=== PATIENT | female | born 1960 | race Caucasian/White ===

== ENCOUNTER → 2017-12-16 | Outpatient (CLI) | payer MEDICARE, OTHER ==
[2017-12-16 17:52] LABS: Blood Urea Nitrogen 13 mg/dL (7-17)
--- NOTE | 2017-12-16 23:37 | CT ---
EXAMINATION TYPE: CT abdomen pelvis w con DATE OF EXAM: 12/16/2017 COMPARISON: NONE HISTORY: 57-year-old female incisional hernia, Epigastric pain and bloating TECHNIQUE: Contiguous axial scanning of the abdomen and pelvis following administration of 100 ml Iso dee dee 300 IV contrast. Delayed images through the kidneys and coronal/sagittal reconstructions perform ed. CT DLP: 1813.1 mGycm Automated exposure control for dose reduction was used. FINDINGS: The technologist reports that the patient was unable to complete the oral prep. Heart normal size without pericardial effusion. Strandy atelectasis in the lower lungs. Subcentimeter hypodensity right hepatic dome too small for accurate CT characterization, likely cysts . Liver enlarged measuring 22.6 cm on coronal series. No biliary ductal dilatation. The venous system i s patent. Moderate-sized omental fat-containing umbilical hernia measuring 5.5 x 5.7 cm centimeters a 1.5 abdom inal wall defect. This seems to be prior mesh repair. In the left paramedian supraumbilical level, th ere are small residual fatty hernia measuring 2.1 cm wide with the hernia neck measuring 1.2 cm wide. Gallbladder, adrenal glands, kidneys, and pancreas appear within normal limits. Tiny hilar splenule a nd borderline splenomegaly at 13.8 cm. No dilated small bowel, free fluid, or free air. Some mildly prominent retroperitoneal lymph node situated in the left paraaortic region measuring up to 9 and are probably reactive/post inflammatory. No mesenteric lymphadenopathy seen. Normal appendix. Oral contrast progressed to the hepatic flexure. Scattered mild stool. No pericoloni c inflammatory change. Fibroid uterus with at least 2 left-sided fundal fibroid measuring up to 4.2 cm. These appear particu larly intramural and partially subserosal. Bladder is collapsed but shows mild circumferential wall t hickening. The left ovary is visualized with a a 3.0 cm dominant follicle or functional cyst. No abnormal fluid collection in the pelvis or pelvic lymphadenopathy. Bones: Endplate spondylosis lower thoracic spine and degenerative disc disease mid to lower lumbar sp ine. IMPRESSION: 1. MODERATE SIZED OMENTAL FAT-CONTAINING UMBILICAL HERNIA MEASURING 5.7 CM WITH A 1.5 CM ABDOMINAL WA LL DEFECT. 2. AN ADDITIONAL SMALL FATTY HERNIA LEFT PARAMEDIAN SUPRAUMBILICAL REGION MEASURING 2.1 CM AND A 1.2 CM WIDE HERNIA NECK. 2. HEPATOMEGALY (22.6 CM) AND FIBROID UTERUS.
== END | disposition home or self-care (01) ==
LOC: RADCTMAIN 17:07
PROVIDERS: ATTEND Surgery
DX: K42.9 Umbilical hernia without obstruction or gangrene (principal); K43.9 Ventral hernia without obstruction or gangrene; R16.0 Hepatomegaly, not elsewhere classified; D25.9 Leiomyoma of uterus, unspecified
CPT/HCPCS: 82565; 84520; 74177; 36415; Q9967

== ENCOUNTER → 2018-01-26 | Outpatient (CLI) | payer MEDICARE, OTHER | END | disposition home or self-care (01) | LOC: LABPAT 16:13 | PROVIDERS: ATTEND Surgery | DX: Z01.818 Encounter for other preprocedural examination (principal); Z01.812 Encounter for preprocedural laboratory examination | CPT/HCPCS: 36415; 84132; 93005 ==

== ENCOUNTER 2018-02-02 08:00 | Inpatient (IN) | payer MEDICARE, OTHER ==
[2018-01-23 16:29] VITALS: BMI 34.2
[~2018-02-02 08:00] MED LIST: DEXAMETHASONE SOD PHOSPHATE 10 MG/ML 1 ML VIAL IV ONE; HEPARIN SODIUM,PORCINE 5,000 UNIT/ML 1 ML VIAL SQ ONE; LIDOCAINE 1% 20 ML VIAL (10MG/ML) FOR IV START INTRADERMA PRN; MIDAZOLAM 2 MG/2 ML VIAL IV PRN; ONDANSETRON 4 MG/2 ML VIAL IVP ONE; ceFAZolin IN SWFI 2 GM/20 ML SYRINGE IVP ONE; fentaNYL (PF) 50 MCG/ML 2 ML AMP IV PRN
[2018-02-02] MEDS: LACTATED RINGERS 1,000 ML IV SCH ×3 (09:30→17:14)
--- NOTE | 2018-02-02 09:42 | P.GSHP ---
History of Present Illness H&P Date: 02/02/18 Chief Complaint: Incisional hernia, panniculus This a 57-year-old female who presents today for panniculectomy and repair of incisional hernia. Patient's had multiple incisional hernia repairs. She's a well-formed panniculus. She's had problems with chronic skin irritation. Patient aware the risk of wound infection, seroma, hematoma Past Medical History Past Medical History: Asthma, Diabetes Mellitus, Hearing Disorder / Deafness, Skin Disorder Additional Past Medical History / Comment(s): SLEEP WALKS, HX OF MULTIPLE HERNIA REPAIR SURGERIES., RASH IN FOLDS OF ABDOMINAL APRON., HEARING IMPAIRED- STATES SHE WILL READ LIPS., WATCHES DIET- NO PROCESSED SUGAR. History of Any Multi-Drug Resistant Organisms: None Reported Past Surgical History: Section, Hernia Repair Additional Past Surgical History / Comment(s): HERNIA REPAIR X13. Past Anesthesia/Blood Transfusion Reactions: Previous Problems w/ Anesthesia Additional Past Anesthesia/Blood Transfusion Reaction / Comment(s): PAIN WITH EPIDURAL WITH C-SECTIONS. Past Psychological History: Anxiety Smoking Status: Never smoker Past Alcohol Use History: None Reported Past Drug Use History: None Reported - Past Family History Mother Family Medical History: Cancer Father Family Medical History: Cancer Brother(s) Family Medical History: Pulmonary Embolus Medications and Allergies Home Medications Medication Instructions Recorded Confirmed Type Albuterol Sulfate [Proair Hfa] 1 - 2 puff INHALATION Q6HR PRN 01/23/18 02/02/18 History Biotin 5 mg PO DAILY 01/23/18 02/02/18 History Cetirizine HCl 10 mg PO DAILY 01/23/18 02/02/18 History Furosemide [Lasix] 80 mg PO DAILY 01/23/18 02/02/18 History Nystatin Powder 1 applicate TOPICAL DIRECTED PRN 01/23/18 02/02/18 History metFORMIN HCL 1,000 mg PO BID-W/MEALS 01/23/18 02/02/18 History Allergies Allergy/AdvReac Type Severity Reaction Status Date / Time latex Allergy Severe Anaphylaxis Verified 02/02/18 09:28 morphine Allergy Severe Anaphylaxis Verified 02/02/18 09:28 peanut Allergy Severe Anaphylaxis Verified 02/02/18 09:28 perfume Allergy Severe DIARRHEA, Verified 02/02/18 09:28 VOMITING, EYE SWELLING, DIFFICULTY BREATHING. 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 We'll perform panniculus. We will also perform repair of recurrent incisional hernia. The patient is extensive detail of the risk of seroma, hematoma wound infection and possible need for reconstructive plastic surgery. Patient's aware that this is not a cosmetic procedure however procedure remove redundant skin and fat. She understands the risk of possible surgery for cosmesis after panniculectomy has been performed.
[2018-02-02] MEDS ORDERED: ONDANSETRON 4 MG/2 ML VIAL IVP ONE (09:48)
[2018-02-02] MEDS ORDERED: DEXAMETHASONE SOD PHOS (MDV) 100 MG/10 ML VIAL IVP ONE (09:48)
[2018-02-02 09:49] LABS: Glucose,Whole Blood 129 mg/dL (75-99)
[2018-02-02] MEDS ORDERED: fentaNYL (PF) 50 MCG/ML 2 ML AMP IVP ONE (09:52)
[2018-02-02 10:04] LABS: Basophils # (A) 0.1 k/uL (0-0.2); Basophils % (A) 0 %; Eosinophils # (A) 0.2 k/uL (0-0.7); Eosinophils % (A) 2 %; HCT 39.7 % (34.0-46.0); HGB 13.4 gm/dL (11.4-16.0); Lymphocytes # (A) 2.8 k/uL (1.0-4.8); Lymphocytes % (A) 27 %; MCH 27.8 pg (25.0-35.0); MCHC 33.8 g/dL (31.0-37.0); MCV 82.5 fL (80.0-100.0); Mean Platelet Volume 7.2; Monocytes # (A) 0.5 k/uL (0-1.0); Monocytes % (A) 5 %; Neutrophils # (A) 6.9 k/uL (1.3-7.7); Neutrophils % (A) 65 %; Platelet Count 410 k/uL (150-450); RBC 4.82 m/uL (3.80-5.40); RDW 13.9 % (11.5-15.5); WBC 10.6 k/uL (3.8-10.6)
[2018-02-02] MEDS ORDERED: LIDOCAINE 1% INJ 10MG/ML (20 ML MDV) ONE (10:14)
[2018-02-02] MEDS ORDERED: VECURONIUM 10 MG VIAL IV ONE (10:14)
[2018-02-02] MEDS ORDERED: fentaNYL (PF) 50 MCG/ML 2 ML AMP ONE (10:14)
[2018-02-02] MEDS ORDERED: PROPOFOL 10 MG/ML 20 ML VIAL IV ONE (10:14)
[2018-02-02] MEDS ORDERED: NEOSTIGMINE 1 MG/ML 10 ML VIAL ONE (10:14)
[2018-02-02] MEDS ORDERED: GLYCOPYRROLATE 0.2 MG/ML 2 ML VIAL ONE (10:14)
[2018-02-02] MEDS ORDERED: SUCCINYLCHOLINE CHLORIDE 100 MG/5 ML SYR IV ONE (10:14)
[2018-02-02] MEDS ORDERED: MIDAZOLAM 2 MG/2 ML VIAL ONE (10:14)
[2018-02-02] MEDS ORDERED: BUPIVACAIN-EPI 0.25%-1:200,000 30 ML VIAL SQ ONE (10:48)
[2018-02-02] MEDS ORDERED: LACTATED RINGERS 1,000 ML IV ONE ×2 (11:01→13:25)
[2018-02-02] MEDS ORDERED: HYDROmorphone 1 MG/ML 1 ML SYRINGE IVP ONE (13:46)
[2018-02-02] MEDS ORDERED: NALOXONE 0.4 MG/ML 1 ML VIAL IV PRN (14:02)
[2018-02-02] MEDS ORDERED: ONDANSETRON 4 MG/2 ML VIAL IVP PRN (14:02)
--- NOTE | 2018-02-02 14:22 | P.ONQ ---
Anesthesiology Proc Note - PNB - Peripheral Nerve Block Performed Bilateral Rectus Abdominis Single Time Out Performed: Yes Procedure Start Time: 09:50 Indication: Acute Post-Operative Pain, Analgesia Specifically requested for management of pain by DrMadeline: Robby Frederick Sedation Type: Sedate with meaningful contact maintained Preparation: Sterile Prep Position: Supine Catheter: None Needle Types: Other (see comment) (Pajunk) Needle Size: 100mm (4") Needle Gauge: 18 Technique: Ultrasound Injectate: Other (see comment) (lido .05% 15cc + Rop .025% 15cc each side) Adjunct: Epinephrine (see comment for dilution ratio) (1:200.000) Blood Aspirated: No Pain Paresthesia on Injection Noted: No Resistance on Injection: Normal Events: Uneventful and Well Tolerated
[2018-02-02] MEDS: HYDROmorphone 1 MG/ML 1 ML SYRINGE IVP PRN ×2 (14:38→18:03)
[2018-02-02] MEDS ORDERED: ALBUTEROL NEBULIZED 2.5 MG/3 ML INHALATION ONE (14:47)
[2018-02-02] MEDS ORDERED: MIDAZOLAM 2 MG/2 ML VIAL IVP ONE (14:52)
--- NOTE | 2018-02-02 16:02 | P.OP ---
Date of Procedure: 02/02/18 Preoperative Diagnosis: Panniculus Recurrent incisional hernia Postoperative Diagnosis: Panniculus Recurrent incisional hernia incarcerated Left inguinal hernia Procedure(s) Performed: Panniculectomy Repair of recurrent incisional hernia Partial omentectomy Repair of left inguinal hernia Anesthesia: JAIR Surgeon: Robby Frederick Estimated Blood Loss (ml): 50 Pathology: other (Omentum) Condition: stable Disposition: PACU Description of Procedure: PROCEDURE: The patient was placed on the operating table in supine position and received general anesthetic. The abdomen was prepped and draped in the usual sterile fashion. The lower skin incision was then made after the skin was marked with a marker. The incision ran from the pubic area to the level of the anterosuperior iliac spine. Using blunt and sharp dissection and electrocautery the subcutaneous tissues were then dissected down to the level of the fascia external oblique. Next, a timbo shaped incision was made around the umbilicus and the umbilicus was then dissected down to the level of the fascia external oblique. The patient was found to have no significant stock of her umbilicus. The patient's umbilical stalk was nonexistent. She had a previous incisional hernia repair which made the umbilicus free floating. . After the umbilicus was dissected a 0 Vicryl suture was used to orientate the umbilicus. The suture was placed at the 12 o'clock position of the umbilicus. Following this the dissection was then made from the inferior pannicular incision cephalad. The xiphoid and costal margins were the limits of the dissection. Several small perforating vessels were ligated and cautery was used to maintain hemostasis. Once the dissection was performed the panniculus was then divided in the midline from the level of the umbilicus towards the pubic area. Downward and lateral traction was then placed on the abdominal wall and the skin was suitably marked for transection of the umbilicus. The skin was then incised and the Bovie was used for dissection of the pannicular flap. Patient had an incarcerated recurrent incisional hernia. Using the cautery the hernia sac was divided and then the omentum which was incarcerated within the hernia sac was transected with the Harmonic scissors. The specimens of pathology. The fascial defect was closed with 3-0 Ethibond sutures. And then the abdominal wall fascia was brought together using 0 Vicryl and 0 PDS to complete the plication of the abdominal wall. Next, to 10-Yi JIM drains were placed in the wound and brought out through separate stab incisions at the level of the pubic area. The drains were secured to the skin using 3-0 nylon. After the JIM drains were secured, Ana Maria' s fascia was closed with interrupted 0 Vicryl sutures and then the skin was closed with running 3-0 Monocryl sutures. Prior to closure of the abdominal wall care was taken to ensure that both the abdominal wall and the abdominal wall flap were hemostatic. At this point the drains were placed to suction. The abdomen was cleaned and then sterile tape was placed over top of the incisions. Abdominal binder was then placed. The patient tolerated the procedure well. The patient was sent to recovery room in stable condition.
[2018-02-02] MEDS: HYDROcodone/APAP 5-325MG 1 EACH TAB PO PRN (16:08)
[2018-02-02] MEDS ORDERED: ALBUTEROL NEBULIZED 2.5 MG/3 ML INHALATION PRN (16:24)
[2018-02-02] MEDS: ALBUTEROL NEBULIZED 2.5 MG/3 ML INHALATION PRN (16:29)
[2018-02-02] MEDS: LACTATED RINGERS 1,000 ML IV ONE ×2 (16:46→18:05)
[2018-02-02] MEDS ORDERED: ALPRAZolam 0.5 MG TAB PO PRN (19:23)
[2018-02-02] MEDS: metFORMIN 500 MG TAB PO SCH (19:35)
[2018-02-02] MEDS ORDERED: HYDROmorphone 1 MG/ML 1 ML SYRINGE IVP STA (19:43)
[2018-02-02] MEDS ORDERED: HYDROmorphone 1 MG/ML 1 ML SYRINGE IVP PRN (19:47)
--- NOTE | 2018-02-02 20:51 | CONS ---
CONSULTATION CHIEF COMPLAINT: This is a white female, status post incisional hernia panniculus repair for medical management. She had some difficulty breathing after surgery and some chest tightness. EKG was normal. She was placed on updraft treatment of albuterol for which made her feel better 2.5 mg updraft treatment, which will be ordered every 4-6 hours p.r.n. She is breathing better now at this time. She states the epidural in her abdomen is not working, is not controlling any of her pain at all. PAST MEDICAL HISTORY: Asthma, diabetes mellitus, hearing disorder, deafness, skin disorder, history of multiple hernias, rashes in the folds of her abdominal apron and sleep walks, history of multiple hernia repair surgeries, borderline diabetes, anxiety. Does not smoke and does not drink alcohol. FAMILY HISTORY: Mother with cancer. Father with cancer. HOME MEDICINES: Albuterol, biotin, Cetirizine 10, Lasix 80, nystatin topical, albuterol 2 puffs q.6 hours p.r.n. ALLERGIES: Latex, morphine, peanuts, perfume, fragrances. PHYSICAL EXAMINATION: VITAL SIGNS: Pulse 86, respiratory 16, blood pressure 153/79, O2 97%. HEENT: Well-developed, well-nourished, no acute distress. CARDIOVASCULAR: S1, S2. LUNGS: Normal expansion. ABDOMEN: Soft, nontender. INTEGUMENT: Skin rash panniculus. ASSESSMENT: 1. Status post panniculus surgery. Shortness of breath postop with some throat irritation secondary to generalized anesthesia reaction and endotracheal tube. 2. History of hypertension with edema. 3. Borderline diabetes mellitus. Continue current treatments. Home medicines are ordered for all of the above. MMODL / IJN: [id number] /
[2018-02-02 21:04] LABS: Glucose,Whole Blood 172 mg/dL (75-99)
[2018-02-02] MEDS: DOCUSATE 100 MG CAP PO SCH (22:41)
[2018-02-02] MEDS: INSULIN ASPART 100 UNIT/ML 1 ML 10 ML VIAL SQ SCH (22:43)
[2018-02-03] MEDS: ALBUTEROL NEBULIZED 2.5 MG/3 ML INHALATION PRN ×2 (00:42→12:46)
[2018-02-03] MEDS: HYDROcodone/APAP 5-325MG 1 EACH TAB PO PRN ×2 (01:35→09:16)
[2018-02-03] MEDS: HYDROmorphone 1 MG/ML 1 ML SYRINGE IVP PRN ×6 (02:54→21:46)
[2018-02-03 07:24] LABS: Glucose,Whole Blood 151 mg/dL (75-99)
[2018-02-03] MEDS: INSULIN ASPART 100 UNIT/ML 1 ML 10 ML VIAL SQ SCH ×4 (08:39→21:30)
[2018-02-03] MEDS: ENOXAPARIN 40 MG/0.4 ML SYRINGE SQ SCH (08:40)
[2018-02-03] MEDS: metFORMIN 500 MG TAB PO SCH ×2 (08:40→18:36)
[2018-02-03] MEDS: FUROSEMIDE 80 MG TAB PO SCH ×3 (08:41→18:42)
[2018-02-03] MEDS: DOCUSATE 100 MG CAP PO SCH ×2 (08:41→21:30)
[2018-02-03] MEDS: LORATADINE 10 MG TAB PO SCH (08:41)
[2018-02-03] MEDS ORDERED: NON-FORMULARY DRUG (Biotin [Biotin] 5 MG) PO SCH (09:00)
[2018-02-03 11:56] LABS: Glucose,Whole Blood 140 mg/dL (75-99)
--- NOTE | 2018-02-03 13:26 | P.PN ---
Subjective Progress Note Date: 02/03/18 57-year-old female seen postop visit. Sitting up in bed drowsy just received pain medication patient states pain medication doesn't completely relieve the pain. Has a prevena system in place surgical dressing sites dry with [address] reports no nausea vomiting states has no real appetite but is tolerating the clear liquid diet Postop Panniculectomy, repair of recurrent incisional hernia, partial omentectomy repair of left inguinal hernia Objective - Vital Signs Vital signs: Vital Signs Temp 97.9 F 02/03/18 07:50 Pulse 84 02/03/18 12:55 Resp 16 02/03/18 09:29 BP 131/85 02/03/18 07:50 Pulse Ox 96 02/03/18 09:29 Intake & Output 02/02/18 02/03/18 02/03/18 18:59 06:59 18:59 Intake Total 2750 260 Output Total 510 190 150 Balance 2240 -190 110 Weight 106.594 kg Intake: IV 2750 Oral 260 Output: Drainage 110 190 150 Abdomen 50 100 60 Left Abdomen 60 90 90 Urine 200 Estimated Blood Loss 200 Other: Voiding Method Toilet # Voids 1 - Exam Physical exam 57-year-old female sitting up in bed just received pain medication oriented 3 Lungs decreased at the bases otherwise adequate air movement Heart S1-S2 audible regular Abdomen surgical tenderness appropriate prevena [address] with 2 JIM drains moderate amount of bloody drainage noted in the bulb not distended. Hypoactive bowel tones no nausea no vomiting no stool states not passing gas Extremities no edema - Labs CBC & Chem 7: 02/02/18 09:40 Labs: Abnormal Lab Results - Last 24 Hours (Table) 02/02/18 02/03/18 02/03/18 Range/Units 20:52 07:18 11:55 POC Glucose (mg/dL) 172 H 151 H 140 H (75-99) mg/dL Assessment and Plan Assessment: Impression Hearing disorder deafness Multiple hernia repair surgeries Panniculectomy, repair of recurrent incisional hernia, repair of left inguinal hernia, partial omentectomy Plan Pain control Clear liquid diet as tolerated DVT and GI prophylaxis Increase activity as tolerated The above impression and plan of care have been discussed and directed by signing physician. Neris Bustamante nurse practitioner acting as scribe for signing physician.
[2018-02-03] MEDS: oxyCODONE-APAP 10-325MG 1 EACH TAB PO PRN ×2 (14:33→18:42)
[2018-02-03] MEDS: LACTATED RINGERS 1,000 ML IV SCH (14:49)
[2018-02-03 16:13] LABS: Hemoglobin A1C 6.3 % (4.0-6.0)
[2018-02-03 17:55] LABS: Glucose,Whole Blood 153 mg/dL (75-99)
[2018-02-03 19:56] LABS: Glucose,Whole Blood 169 mg/dL (75-99)
[2018-02-04] MEDS: HYDROmorphone 1 MG/ML 1 ML SYRINGE IVP PRN ×2 (01:07→04:01)
[2018-02-04] MEDS: oxyCODONE-APAP 10-325MG 1 EACH TAB PO PRN ×5 (01:08→22:11)
--- NOTE | 2018-02-04 05:42 | PN ---
PROGRESS NOTE SUBJECTIVE: A 57-year-old white female status post panniculectomy, wound incision looks intact. Goes all the way straight across her lower pelvic area. CARDIOVASCULAR: S1, S2. LUNGS: Clear. She is breathing better. Saturating good on oxygen level. Updraft treatments helped her. She will be discharged home in the next 24 to 48 hours. For pain medicine, please see further orders. MMODL / IJN: [id number] /
[2018-02-04 07:12] LABS: Glucose,Whole Blood 153 mg/dL (75-99)
[2018-02-04] MEDS: ALBUTEROL NEBULIZED 2.5 MG/3 ML INHALATION PRN (08:12)
[2018-02-04] MEDS: INSULIN ASPART 100 UNIT/ML 1 ML 10 ML VIAL SQ SCH ×4 (08:43→21:08)
[2018-02-04] MEDS: ENOXAPARIN 40 MG/0.4 ML SYRINGE SQ SCH (08:44)
[2018-02-04] MEDS: DOCUSATE 100 MG CAP PO SCH ×2 (08:44→22:12)
[2018-02-04] MEDS: LORATADINE 10 MG TAB PO SCH (08:45)
[2018-02-04] MEDS: metFORMIN 500 MG TAB PO SCH ×2 (08:45→19:06)
[2018-02-04] MEDS: FUROSEMIDE 80 MG TAB PO SCH (08:45)
[2018-02-04 11:46] LABS: Glucose,Whole Blood 142 mg/dL (75-99)
[2018-02-04] MEDS ORDERED: PANTOPRAZOLE 40 MG/10 ML VIAL IVP SCH (13:15)
[2018-02-04] MEDS: LACTATED RINGERS 1,000 ML IV SCH (13:51)
--- NOTE | 2018-02-04 16:08 | P.DS ---
Providers Date of admission: 02/02/18 08:55 Expected date of discharge: 02/04/18 Attending physician: Robby Frederick Consults: 02/02/18 14:02 Consult Physician Routine Consulting Provider: Eliazar Ramirez Reason/Comments: Medical management Do you want consulting provider notified?: Yes [facility] Course: 57-year-old female who presents undergoing elective panniculectomy and repair of incisional hernia. Patient's had multiple incisional hernia repairs. She's a well-formed panniculus. She's had problems with chronic skin irritation. Patient aware the risk of wound infection, seroma, hematoma Postop Panniculectomy, repair of recurrent incisional hernia, partial omentectomy repair of left inguinal hernia underwent the procedure on the 02 of February . On the day of discharge patient reportedly stated the pain medication is effective for pain control [address] with a moderate amount of bloody drainage noted in the bulbs a prevena wound system in place surgical dressing dry. Patient was tolerating the diet and was felt to be appropriate to be discharged .Impression Hearing disorder deafness Multiple hernia repair surgeries Panniculectomy, repair of recurrent incisional hernia, repair of left inguinal hernia, partial omentectomy The above impression and plan of care have been discussed and directed by signing physician. Neris Bustamante nurse practitioner acting as scribe for signing physician. Plan - Discharge Summary Discharge Rx Participant: No New Discharge Prescriptions: New HYDROcodone/APAP 7.5-325MG [[place] 7.5-325] 1 tab PO Q4H PRN 3 Days #18 tab PRN Reason: Mild Breakthrough Pain Continue Albuterol Sulfate [Proair Hfa] 1 - 2 puff INHALATION Q6HR PRN PRN Reason: Shortness Of Breath metFORMIN HCL 1,000 mg PO BID-W/MEALS Furosemide [Lasix] 80 mg PO DAILY Cetirizine HCl 10 mg PO DAILY Biotin 5 mg PO DAILY Nystatin Powder 1 applicate TOPICAL DIRECTED PRN PRN Reason: to rash in abdominal apron Discharge Medication List Albuterol Sulfate [Proair Hfa] 1 - 2 puff INHALATION Q6HR PRN 01/23/18 [History] Biotin 5 mg PO DAILY 01/23/18 [History] Cetirizine HCl 10 mg PO DAILY 01/23/18 [History] Furosemide [Lasix] 80 mg PO DAILY 01/23/18 [History] Nystatin Powder 1 applicate TOPICAL DIRECTED PRN 01/23/18 [History] metFORMIN HCL 1,000 mg PO BID-W/MEALS 01/23/18 [History] HYDROcodone/APAP 7.5-325MG [[place] 7.5-325] 1 tab PO Q4H PRN 3 Days #18 tab 02/04 [Rx] Follow up Appointment(s)/Referral(s): Robby Frederick MD [STAFF PHYSICIAN] - 02/10/18 12:10 pm Patient Instructions/Handouts: [facility] Closed Incision Management System Discharge Instructions, Laparoscopic Herniorrhaphy (DC), Panniculectomy (DC) Activity/Diet/Wound Care/Special Instructions: [facility] home care: #[phone] Care Plan Goals (MU): No tub bath for six weeks. Shower daily. No lifting over 10 pounds for the next 2 weeks. Monitor JIM drain and record. Every 8 hours May use ice packs to surgical site. No driving while taking narcotic for pain. Discharge Disposition: HOME WITH HOME HEALTH SERVICES
[2018-02-04 17:33] LABS: Glucose,Whole Blood 129 mg/dL (75-99)
[2018-02-04 18:39] LABS: Glucose,Whole Blood 137 mg/dL (75-99)
[2018-02-04] MEDS ORDERED: RX INFO: IV CONTRAST WAS GIVEN 1 EACH MISC MISCELLANE PRN (19:39)
[2018-02-04 20:13] LABS: Glucose,Whole Blood 152 mg/dL (75-99)
--- NOTE | 2018-02-04 22:41 | CT ---
EXAM: CT Angiography Chest With Intravenous Contrast CLINICAL HISTORY: ITS.REASON CT Reason: rule out pulmonary embolism TECHNIQUE: Axial computed tomographic angiography images of the chest with intravenous contrast using pulmonary embolism protocol. CTDI is 13.1 mGy and DLP is 425.8 mGy-cm. This CT exam was performed using one or more of the following dose reduction techniques: automated exposure control, adjustment of the mA and/or kV according to patient size, and/or use of iterative reconstruction technique. MIP reconstructed images were created and reviewed. COMPARISON: No relevant prior studies available. FINDINGS: Pulmonary arteries: No pulmonary embolism. Aorta: No acute findings. Lungs: Tracheomalacia. Basilar atelectasis Pleural space: Unremarkable. No significant effusion. No pneumothorax. Heart: Unremarkable. No cardiomegaly. No significant pericardial effusion. No evidence of RV dysfunction. Bones/joints: No acute fracture. No dislocation. Soft tissues: Free air in the upper abdomen (series 501, images 94-99). Lymph nodes: Unremarkable. No enlarged lymph nodes. IMPRESSION: No PE. Basilar atelectasis. Tracheomalacia. Upper abdominal free air. I confirmed with the nurse that patient has had recent surgery. [employer] 02/04/18 22:38 Call Nurse RONNIE Tejada
[2018-02-05 03:46] LABS: Basophils # (A) 0.1 k/uL (0-0.2); Basophils % (A) 0 %; Eosinophils # (A) 0.2 k/uL (0-0.7); Eosinophils % (A) 1 %; HCT 34.8 % (34.0-46.0); HGB 11.4 gm/dL (11.4-16.0); Lymphocytes # (A) 1.7 k/uL (1.0-4.8); Lymphocytes % (A) 10 %; MCH 27.9 pg (25.0-35.0); MCHC 32.8 g/dL (31.0-37.0); MCV 85.2 fL (80.0-100.0); Mean Platelet Volume 7.1; Monocytes # (A) 0.9 k/uL (0-1.0); Monocytes % (A) 5 %; Neutrophils # (A) 14.4 k/uL (1.3-7.7); Neutrophils % (A) 82 %; Platelet Count 489 k/uL (150-450); RBC 4.08 m/uL (3.80-5.40); RDW 14.6 % (11.5-15.5); WBC 17.5 k/uL (3.8-10.6)
[2018-02-05 04:05] LABS: ALT 31 U/L (9-52); AST 44 U/L (14-36); Albumin 4.6 g/dL (3.5-5.0); Alkaline Phosphatase 88 U/L (38-126); Anion Gap 15 mmol/L; Blood Urea Nitrogen 17 mg/dL (7-17); Carbon Dioxide 22 mmol/L (22-30); Chloride 98 mmol/L (98-107); Glucose 158 mg/dL (74-99); Potassium 3.9 mmol/L (3.5-5.1); Sodium 135 mmol/L (137-145); Total Bilirubin 1.2 mg/dL (0.2-1.3); Total Protein 7.5 g/dL (6.3-8.2)
[2018-02-05] MEDS: oxyCODONE-APAP 10-325MG 1 EACH TAB PO PRN (04:20)
[2018-02-05 07:27] LABS: Glucose,Whole Blood 145 mg/dL (75-99)
[2018-02-05] MEDS ORDERED: PANTOPRAZOLE 40 MG TABLET PO SCH (07:30)
--- NOTE | 2018-02-05 07:36 | PN ---
PROGRESS NOTE SUBJECTIVE: A 57-year-old white female with incisional hernia panniculitis with atypical chest pain. Breathing treatments help her. CT of the chest was negative for any pulmonary embolism. CARDIOVASCULAR: S1, S2. GI: Soft. HEMATOLOGY: Negative Homans. PSYCH: Fair mood and affect. ASSESSMENT: 1. Incisional hernia panniculitis. 2. Atypical chest pain. 3. Asthma, bronchospasm. Continue current treatment, follow up in the next 24 to 48 hours for discharge. MMODL / IJN: [id number] /
[2018-02-05] MEDS: ENOXAPARIN 40 MG/0.4 ML SYRINGE SQ SCH (08:08)
[2018-02-05] MEDS: INSULIN ASPART 100 UNIT/ML 1 ML 10 ML VIAL SQ SCH (08:08)
[2018-02-05] MEDS: LORATADINE 10 MG TAB PO SCH (08:09)
[2018-02-05] MEDS: DOCUSATE 100 MG CAP PO SCH (08:09)
[2018-02-05] MEDS: FUROSEMIDE 80 MG TAB PO SCH (08:09)
[2018-02-05] MEDS ORDERED: HYDROcodone/APAP 5-325MG 1 EACH TAB PO PRN (08:32)
[2018-02-05 08:54] VITALS: BP 153/83; PULSE 92; RESP 16; TEMP 98.5
--- NOTE | 2018-02-05 11:30 | P.PN ---
Subjective Progress Note Date: 02/05/18 57-year-old female seen up ambulating to the bathroom with the use of a walker. White counts morning 17.5. Up from 10.6 PT OT eval pending patient states she 'll go home this afternoon lives with a daughter who is 16. Did note medicine service ordered a CAT scan of the chest no evidence of a PE Patient was discharged yesterday on February 04 medicine service held discharge patient felt she was not ready to be discharged yesterday correctional counselor/case manager did pursue possible rehab placement patient states she's not interested wants to go home with home care set up which has been arranged by the medicine service Temp is 98.5 total bili 1.[address] with the Provera wound VAC system in place Panniculectomy, repair of recurrent incisional hernia, repair of left inguinal hernia, partial omentectomy procedure done February 02 Objective - Vital Signs Vital signs: Vital Signs Temp 98.5 F 02/05/18 08:52 Pulse 92 02/05/18 09:42 Resp 16 02/05/18 08:52 BP 153/83 02/05/18 08:52 Pulse Ox 92 L 02/05/18 08:52 Intake & Output 02/04/18 02/05/18 02/05/18 18:59 06:59 18:59 Intake Total 2120 640 Output Total 150 165 110 Balance 1970 475 -110 Weight 106.594 kg Intake: Intake, IV Titration 160 Amount Lactated Ringers 1,000 ml 160 @ 0 mls/hr IV .[facility] Rx#:[id number] Oral 2120 480 Output: Drainage 150 165 110 Left Abdomen 100 80 60 Right Abdomen 50 85 50 Other: Voiding Method Toilet Toilet # Voids 2 5 - Exam Physical exam 57-year-old female ambulating to the bathroom no reports of nausea vomiting urinating no difficulty denies dizziness lightheadedness chest pain or shortness Lungs adequate air movement bilaterally on room air sats 90-93% Heart S1-S2 audible regular no murmur noted no chest pain Abdomen surgical dressing site dry nondistended [address] moderate amount of drainage in the bulbs Provera wound system in place surgical tenderness appropriate states urinating no difficulty no stool not passing gas no nausea no vomiting tolerating full liquid diet Extremities no edema - Labs CBC & Chem 7: 02/05/18 03:22 02/05/18 03:22 Labs: Abnormal Lab Results - Last 24 Hours (Table) 02/04/18 02/04/18 02/04/18 Range/Units 11:33 17:18 18:27 WBC (3.8-10.6) k/uL Plt Count (150-450) k/uL Neutrophils # (1.3-7.7) k/uL Sodium (137-145) mmol/L Glucose (74-99) mg/dL POC Glucose (mg/dL) 142 H 129 H 137 H (75-99) mg/dL AST (14-36) U/L 02/04/18 02/05/18 02/05/18 Range/Units 20:02 03:22 03:22 WBC 17.5 H (3.8-10.6) k/uL Plt Count 489 H (150-450) k/uL Neutrophils # 14.4 H (1.3-7.7) k/uL Sodium 135 L (137-145) mmol/L Glucose 158 H (74-99) mg/dL POC Glucose (mg/dL) 152 H (75-99) mg/dL AST 44 H (14-36) U/L 02/05/18 Range/Units 07:14 WBC (3.8-10.6) k/uL Plt Count (150-450) k/uL Neutrophils # (1.3-7.7) k/uL Sodium (137-145) mmol/L Glucose (74-99) mg/dL POC Glucose (mg/dL) 145 H (75-99) mg/dL AST (14-36) U/L Assessment and Plan Assessment: Impression Hearing disorder deafness Multiple hernia repair surgeries Panniculectomy, repair of recurrent incisional hernia, repair of left inguinal hernia, partial omentectomy Plan Okay to be discharged from a surgical perspective Pain control Full liquid diet as tolerated DVT and GI prophylaxis Increase activity as tolerated Continue postop surgical care PT OT eval possible rehab versus home care at the time of discharge The above impression and plan of care have been discussed and directed by signing physician. Neris Bustamante nurse practitioner acting as scribe for signing physician.
[2018-02-05 11:31] LABS: Glucose,Whole Blood 162 mg/dL (75-99)
[2018-02-05] MEDS ORDERED: LEVOFLOXACIN 500 MG TAB PO SCH (12:15)
--- NOTE | 2018-02-09 08:26 | CDI ---
Last Revision, February 2017 Documentation Clarification Form Date: 02/09/18 From: QUAN Zepeda Phone: If you have question, contact Amanda Boyer at [phone] M-F 8:30 am to 6pm Admit Date: 02/02/2018 8:55:00 AM Patient Name: Antonina Tena Visit Number: [id number] Discharge Date: 02/05/18 ATTENTION: The Clinical Documentation Specialists (CDI) and [facility] Coding Staff appreciate your assistance in clarifying documentation. Please respond to the clarification below the line at the bottom and electronically sign. The CDI & [facility] Coding staff will review the response and follow-up if needed. Please note: Queries are made part of the Legal Health Record. If you have any questions, please contact the author of this message via ITS. Robby Gregorio MD Ms Tena presented for incisional hernia repair and panniculectomy. According to the postoperative diagnosis she is also diagnosed with a left inguinal hernia. It is also noted in the procedures performed that a repair of a left inguinal hernia was done. However,the procedure report does not describe inguinal hernia repair . Please dictate an addendum to your procedure note describing this procedure. addendum made MTDD
== END 2018-02-05 14:00 | disposition home health service (06) | DRG 580 ==
LOC: 2ORMAIN 08:55 → 4SSUR 13:38
PROVIDERS: ADMIT Surgery; ATTEND Surgery
PROC: 0WBF0ZZ Excision of Abdominal Wall, Open Approach (ICD-10-PCS; principal; 2018-02-02 10:25)
PROC: 0DBU0ZZ Excision of Omentum, Open Approach (ICD-10-PCS; principal; 2018-02-02 10:25)
PROC: 0YU60JZ Supplement Left Inguinal Region with Synthetic Substitute, Open Approach (ICD-10-PCS; principal; 2018-02-02 10:25)
DX: M79.3 Panniculitis, unspecified (principal); K43.0 Incisional hernia with obstruction, without gangrene; J45.909 Unspecified asthma, uncomplicated; E11.9 Type 2 diabetes mellitus without complications; H91.90 Unspecified hearing loss, unspecified ear; F41.9 Anxiety disorder, unspecified; I10 Essential (primary) hypertension; K40.90 Unilateral inguinal hernia, without obstruction or gangrene, not specified as recurrent; R07.89 Other chest pain; Z79.899 Other long term (current) drug therapy; Z80.9 Family history of malignant neoplasm, unspecified; Z91.040 Latex allergy status; Z88.5 Allergy status to narcotic agent; Z91.010 Allergy to peanuts; Z91.09 Other allergy status, other than to drugs and biological substances
CPT/HCPCS: 64493; 71275; 80053; 81025; 82565; 83036; 84484; 84520; 85025; 85379; 88302; 93005; 94640; 94760

== ENCOUNTER 2018-02-16 13:58 | Emergency (ER) | payer MEDICARE, OTHER ==
[2018-02-16 14:15] VITALS: TEMP 98.5
[2018-02-16] MEDS ORDERED: SODIUM CHLORIDE 0.9% 1,000 ML IV STA (15:35)
--- NOTE | 2018-02-16 15:42 | ED ---
General Adult HPI - General Chief complaint: Abdominal Pain Stated complaint: Post surgery/drain came out Time Seen by Provider: 02/16/18 15:29 Source: patient, RN notes reviewed, old records reviewed Mode of arrival: ambulatory Limitations: no limitations - History of Present Illness Initial comments: 57-year-old female with lower abdominal pain. Patient is 14 days postop panniculectomy, incisional hernia repair. Patient had initially to keep a drains, one was inadvertently pulled out. She also reports a small area of incisional dehiscence which occurred in the hospital prior to discharge. She also complains of subjective fever and chills. Mild nausea, no vomiting, she has had normal bowel movements. Patient had discussed her concerns of lower abdominal pain and swelling with her surgeon who recommended she presented to emergency department. - Related Data Home Medications Medication Instructions Recorded Confirmed Albuterol Sulfate [Proair Hfa] 1 - 2 puff INHALATION RT-Q6H PRN 01/23/18 Biotin 5 mg PO DAILY 01/23/18 02/16/18 Cetirizine HCl 10 mg PO DAILY 01/23/18 02/16/18 Furosemide [Lasix] 80 mg PO DAILY 01/23/18 02/16/18 metFORMIN HCL 1,000 mg PO BID-W/MEALS 01/23/18 02/16/18 Previous Rx's Medication Instructions Recorded Levofloxacin [Levaquin] 500 mg PO DAILY #7 tab 02/05/18 Allergies Allergy/AdvReac Type Severity Reaction Status Date / Time latex Allergy Severe Anaphylaxis Verified 02/16/18 15:42 morphine Allergy Severe Anaphylaxis Verified 02/16/18 15:42 peanut Allergy Severe Anaphylaxis Verified 02/16/18 15:42 perfume Allergy Severe DIARRHEA, Verified 02/16/18 15:42 VOMITING, EYE SWELLING, DIFFICULTY BREATHING. FRAGRENCES -VANILLA, Allergy Unknown DIARRHEA, Uncoded 02/16/18 14:15 CINNAMON, VOMITING, SWELLING, DYSPNEA Review of Systems ROS Statement: Those systems with pertinent positive or pertinent negative responses have been documented in the HPI. ROS Other: All systems not noted in ROS Statement are negative. Past Medical History Past Medical History: Asthma, Diabetes Mellitus, Hearing Disorder / Deafness, Skin Disorder Additional Past Medical History / Comment(s): SLEEP WALKS, HX OF MULTIPLE HERNIA REPAIR SURGERIES., RASH IN FOLDS OF ABDOMINAL APRON., HEARING IMPAIRED- STATES SHE WILL READ LIPS., WATCHES DIET- NO PROCESSED SUGAR. History of Any Multi-Drug Resistant Organisms: None Reported Past Surgical History: Section, Hernia Repair Additional Past Surgical History / Comment(s): HERNIA REPAIR X13, hernia incison repair Past Anesthesia/Blood Transfusion Reactions: Previous Problems w/ Anesthesia Additional Past Anesthesia/Blood Transfusion Reaction / Comment(s): PAIN WITH EPIDURAL WITH C-SECTIONS. Past Psychological History: Anxiety Smoking Status: Never smoker Past Alcohol Use History: None Reported Past Drug Use History: None Reported - Past Family History Mother Family Medical History: Cancer Father Family Medical History: Cancer Brother(s) Family Medical History: Pulmonary Embolus General Exam Limitations: no limitations General appearance: alert, in no apparent distress Head exam: Present: atraumatic, normocephalic Eye exam: Present: normal appearance, PERRL Neck exam: Present: normal inspection. Absent: tenderness, meningismus Respiratory exam: Present: normal lung sounds bilaterally. Absent: respiratory distress Cardiovascular Exam: Present: regular rate, normal rhythm GI/Abdominal exam: Present: soft, tenderness (Mild generalized tenderness), other (Incision is clean and dry, no purulence, mild erythema, 2 cm area of dehiscence on the left lateral edge of the incision,mons pubis is swollen, soft , not indurated.). Absent: distended Extremities exam: Present: normal inspection Back exam: Present: normal inspection. Absent: full ROM, tenderness Neurological exam: Present: alert, oriented X3 Psychiatric exam: Present: normal affect, normal mood Skin exam: Present: warm, dry. Absent: cyanosis, diaphoretic Course Vital Signs 02/16/18 14:10 Temperature 98.5 F Pulse Rate 104 H Respiratory 22 Rate Blood Pressure 136/82 O2 Sat by Pulse 94 L Oximetry - Reevaluation(s) Reevaluation #1: 02/16/18 15:[address] Frederick, laboratory studies will be obtained, an ultrasound performed in the emergency department. Medical Decision Making - Medical Decision Making 57-year-old female with swelling below her incision after panniculectomy and hernia repair. No induration, no significant erythema to indicate infection. There is some soft swelling of the mons pubis. Patient's general surgeon who recommended ultrasound, this is obtained, shows edema with no specific abscess. Patient has a white count 12 although this is down trending from previous is 17. Other laboratory studies are unremarkable. Case is discussed with Dr. Frederick, recommended outpatient follow-up. - Lab Data Result diagrams: 02/16/18 15:50 02/16/18 15:50 Lab Results 02/16/18 02/16/18 02/16/18 Range/Units 15:50 15:50 15:50 WBC 12.3 H (3.8-10.6) k/uL RBC 4.33 (3.80-5.40) m/uL Hgb 11.9 (11.4-16.0) gm/dL Hct 35.8 (34.0-46.0) % MCV 82.6 (80.0-100.0) fL MCH 27.5 (25.0-35.0) pg MCHC 33.3 (31.0-37.0) g/dL RDW 15.2 (11.5-15.5) % Plt Count 569 H (150-450) k/uL Neutrophils % 69 % Lymphocytes % 20 % Monocytes % 6 % Eosinophils % 4 % Basophils % 0 % Neutrophils # 8.5 H (1.3-7.7) k/uL Lymphocytes # 2.4 (1.0-4.8) k/uL Monocytes # 0.7 (0-1.0) k/uL Eosinophils # 0.4 (0-0.7) k/uL Basophils # 0.1 (0-0.2) k/uL Sodium 143 (137-145) mmol/L Potassium 3.3 L (3.5-5.1) mmol/L Chloride 100 (98-107) mmol/L Carbon Dioxide 30 (22-30) mmol/L Anion Gap 13 mmol/L BUN 12 (7-17) mg/dL Creatinine 0.68 (0.52-1.04) mg/dL Est GFR (CKD-EPI)AfAm >90 (>60 ml/min/1.73 sqM) Est GFR (CKD-EPI)NonAf >90 (>60 ml/min/1.73 sqM) Glucose 106 H (74-99) mg/dL Plasma Lactic Acid Soren 1.6 (0.7-2.0) mmol/L Calcium 9.5 (8.4-10.2) mg/dL Total Bilirubin 0.5 (0.2-1.3) mg/dL AST 28 (14-36) U/L ALT 44 (9-52) U/L Alkaline Phosphatase 88 (38-126) U/L Total Protein 7.7 (6.3-8.2) g/dL Albumin 4.5 (3.5-5.0) g/dL Amylase 57 (30-110) U/L Lipase 176 (23-300) U/L Urine Color Urine Appearance (Clear) Urine pH (5.0-8.0) Ur Specific [place] (1.001-1.035) Urine Protein (Negative) Urine Glucose (UA) (Negative) Urine Ketones (Negative) Urine Blood (Negative) Urine Nitrite (Negative) Urine Bilirubin (Negative) Urine Urobilinogen (<2.0) mg/dL Ur Leukocyte Esterase (Negative) 02/16/18 Range/Units 15:50 WBC (3.8-10.6) k/uL RBC (3.80-5.40) m/uL Hgb (11.4-16.0) gm/dL Hct (34.0-46.0) % MCV (80.0-100.0) fL MCH (25.0-35.0) pg MCHC (31.0-37.0) g/dL RDW (11.5-15.5) % Plt Count (150-450) k/uL Neutrophils % % Lymphocytes % % Monocytes % % Eosinophils % % Basophils % % Neutrophils # (1.3-7.7) k/uL Lymphocytes # (1.0-4.8) k/uL Monocytes # (0-1.0) k/uL Eosinophils # (0-0.7) k/uL Basophils # (0-0.2) k/uL Sodium (137-145) mmol/L Potassium (3.5-5.1) mmol/L Chloride (98-107) mmol/L Carbon Dioxide (22-30) mmol/L Anion Gap mmol/L BUN (7-17) mg/dL Creatinine (0.52-1.04) mg/dL Est GFR (CKD-EPI)AfAm (>60 ml/min/1.73 sqM) Est GFR (CKD-EPI)NonAf (>60 ml/min/1.73 sqM) Glucose (74-99) mg/dL Plasma Lactic Acid Soren (0.7-2.0) mmol/L Calcium (8.4-10.2) mg/dL Total Bilirubin (0.2-1.3) mg/dL AST (14-36) U/L ALT (9-52) U/L Alkaline Phosphatase (38-126) U/L Total Protein (6.3-8.2) g/dL Albumin (3.5-5.0) g/dL Amylase (30-110) U/L Lipase (23-300) U/L Urine Color Colorless Urine Appearance Clear (Clear) Urine pH 7.0 (5.0-8.0) Ur Specific [place] 1.005 (1.001-1.035) Urine Protein Negative (Negative) Urine Glucose (UA) Negative (Negative) Urine Ketones Negative (Negative) Urine Blood Negative (Negative) Urine Nitrite Negative (Negative) Urine Bilirubin Negative (Negative) Urine Urobilinogen <2.0 (<2.0) mg/dL Ur Leukocyte Esterase Negative (Negative) Disposition Clinical Impression: Swelling of surgical site Disposition: HOME SELF-CARE Condition: Good Instructions: Wound Dehiscence (ED) Is patient prescribed a controlled substance at d/c from ED?: No Referrals: Eliazar Ramirez MD [Primary Care Provider] - 1-2 days Time of Disposition: 16:53
[2018-02-16 16:11] LABS: Appearance,Urine Clear (Clear); Bilirubin,Urine Negative (Negative); Blood,Urine Negative (Negative); Color,Urine Colorless; Glucose,Urine (UA) Negative (Negative); Ketones,Urine Negative (Negative); Leukocyte Esterase,Urine Negative (Negative); Nitrite,Urine Negative (Negative); Protein,Urine Negative (Negative); Specific Gravity,Urine 1.005 (1.001-1.035); Urobilinogen,Urine <2.0 mg/dL (<2.0)
[2018-02-16 16:23] LABS: ALT 44 U/L (9-52); AST 28 U/L (14-36); Albumin 4.5 g/dL (3.5-5.0); Alkaline Phosphatase 88 U/L (38-126); Amylase 57 U/L (30-110); Anion Gap 13 mmol/L; Blood Urea Nitrogen 12 mg/dL (7-17); Calcium 9.5 mg/dL (8.4-10.2); Carbon Dioxide 30 mmol/L (22-30); Chloride 100 mmol/L (98-107); Glucose 106 mg/dL (74-99); Lipase 176 U/L (23-300); Potassium 3.3 mmol/L (3.5-5.1); Sodium 143 mmol/L (137-145); Total Bilirubin 0.5 mg/dL (0.2-1.3); Total Protein 7.7 g/dL (6.3-8.2)
[2018-02-16 16:24] LABS: Basophils # (A) 0.1 k/uL (0-0.2); Basophils % (A) 0 %; Eosinophils # (A) 0.4 k/uL (0-0.7); Eosinophils % (A) 4 %; HCT 35.8 % (34.0-46.0); HGB 11.9 gm/dL (11.4-16.0); Lymphocytes # (A) 2.4 k/uL (1.0-4.8); Lymphocytes % (A) 20 %; MCH 27.5 pg (25.0-35.0); MCHC 33.3 g/dL (31.0-37.0); MCV 82.6 fL (80.0-100.0); Mean Platelet Volume 6.8; Monocytes # (A) 0.7 k/uL (0-1.0); Monocytes % (A) 6 %; Neutrophils # (A) 8.5 k/uL (1.3-7.7); Neutrophils % (A) 69 %; Platelet Count 569 k/uL (150-450); RBC 4.33 m/uL (3.80-5.40); RDW 15.2 % (11.5-15.5); WBC 12.3 k/uL (3.8-10.6)
--- NOTE | 2018-02-16 16:48 | US ---
EXAMINATION TYPE: US pelvic limited DATE OF EXAM: 02/16/2018 COMPARISON: NONE CLINICAL HISTORY: Pain. Patient had recent paniculectomy, and hernia repair. She has swelling of her mons pubis area. Possible small amount of fluid measuring 2.6 x .06cm. Technically difficult due to swelling. IMPRESSION: There is subcutaneous edema. No discrete solid or cystic mass identified in the area of concern.
[2018-02-16 17:01] VITALS: BP 124/70; PULSE 74; RESP 20
== END 2018-02-16 17:13 | disposition home or self-care (01) ==
LOC: EC 13:58
DX: T81.89XA Other complications of procedures, not elsewhere classified, initial encounter (principal); R10.30 Lower abdominal pain, unspecified; R50.9 Fever, unspecified; R11.0 Nausea; Z98.890 Other specified postprocedural states; J45.909 Unspecified asthma, uncomplicated; E11.9 Type 2 diabetes mellitus without complications; Z79.84 Long term (current) use of oral hypoglycemic drugs; Z79.899 Other long term (current) drug therapy; Z91.048 Other nonmedicinal substance allergy status; Z88.5 Allergy status to narcotic agent; Z91.010 Allergy to peanuts; Z91.018 Allergy to other foods
CPT/HCPCS: 36415; 76857; 80053; 81003; 82150; 83605; 83690; 85025; 87040; 96360; 99284

== ENCOUNTER 2018-03-13 11:55 | Day surgery (SDC) | payer MEDICARE, OTHER ==
[2018-03-13 12:21] VITALS: RESP 20; TEMP 98
[2018-03-13] MEDS ORDERED: ALPRAZolam 0.5 MG TAB PO STA (12:32)
[2018-03-13 14:14] VITALS: BP 119/81; PULSE 78
--- NOTE | 2018-03-13 15:10 | US ---
Ultrasound guided subcutaneous postoperative seroma drainage catheter insertion. DATE OF EXAM: 03/13/2018 CLINICAL HISTORY: Postoperative subcutaneous seroma The procedure was discussed with the patient. The risks, complications, benefits, and alternatives we re discussed and any questions were answered. Informed consent was obtained. The patient was placed s upine on the ultrasound table and prepped and draped in the usual sterile fashion. All elements of maximal barrier and sterile technique were utilized. Under ultrasound guidance, acce ss into the stroma collection was achieved with an 8 [place] drainage catheter under direct ultrasound guidance. There is free spillage of serous fluid. Repeat imaging demonstrated the catheter to be in ideal position. The patient was stable throughout the procedure and remained stable upon discharge from Department of Radiology. IMPRESSION: Successful ultrasound guided subcutaneous seroma drainage catheter insertion.
== END 2018-03-13 14:40 | disposition home or self-care (01) ==
LOC: RADPROMAIN 11:55
PROVIDERS: ATTEND Surgery
DX: L76.34 Postprocedural seroma of skin and subcutaneous tissue following other procedure (principal)
CPT/HCPCS: 10030; 76942

== ENCOUNTER 2018-03-20 15:15 | Day surgery (SDC) | payer MEDICARE ==
[2018-03-20 16:49] VITALS: BP 109/78; PULSE 84; RESP 18; TEMP 97.2
== END 2018-03-20 16:30 | disposition home or self-care (01) ==
LOC: RADPROMAIN 15:15
PROVIDERS: ATTEND Surgery
DX: Z45.89 Encounter for adjustment and management of other implanted devices (principal); K91.872 Postprocedural seroma of a digestive system organ or structure following a digestive system procedure; S30.0XXD Contusion of lower back and pelvis, subsequent encounter
CPT/HCPCS: 87070; 87205; 87075; G0463; 99213

== ENCOUNTER 2018-03-22 18:32 | Emergency (ER) | payer MEDICARE ==
[2018-03-22 18:59] VITALS: RESP 18
--- NOTE | 2018-03-22 20:06 | ED ---
Abdominal Pain HPI - General Chief Complaint: Abdominal Pain Stated Complaint: Drain came out/post surgery 10 days ago Time Seen by Provider: 03/22/18 19:20 Source: patient, RN notes reviewed Mode of arrival: ambulatory Limitations: no limitations - History of Present Illness Initial Comments: 57-year-old female presents emergency Department secondary to abdominal drain issues. Patient states that she had a drain placed by Dr. Corin romero 10 days ago. Patient states she had a dressing change on Friday and states that ever since that it slowly been pulling out. Patient states that she noticed that she's had increased pain today and decreased drainage. Patient states her surgeon is was Dr. You for her initial procedure. Patient states that she had a large seroma in which they've been trying to drain. Patient reports no fevers no chills. Patient states her surgeon is out of town at this time. - Related Data Home Medications Medication Instructions Recorded Confirmed Cetirizine HCl 10 mg PO DAILY 01/23/18 03/22/18 Furosemide [Lasix] 80 mg PO DAILY 01/23/18 03/22/18 metFORMIN HCL 1,000 mg PO BID-W/MEALS 01/23/18 03/22/18 Potassium Bicarbonate/Cit AC 1 meq PO DAILY 03/13/18 03/22/18 [Potassium 25 Meq Tablet Eff] Amoxicillin/Potassium Clav 1 tab PO BID 03/22/18 03/22/18 [Augmentin 875-125 Tablet] Allergies Allergy/AdvReac Type Severity Reaction Status Date / Time latex Allergy Severe Anaphylaxis Verified 03/22/18 20:00 morphine Allergy Severe Anaphylaxis Verified 03/22/18 20:00 peanut Allergy Severe Anaphylaxis Verified 03/22/18 20:00 perfume Allergy Severe DIARRHEA, Verified 03/22/18 20:00 VOMITING, EYE SWELLING, DIFFICULTY BREATHING. hydromorphone [From Dilaudid] Allergy Anaphylaxis Verified 03/22/18 20:34 FRAGRENCES -VANILLA, Allergy Unknown DIARRHEA, Uncoded 03/22/18 18:59 CINNAMON, VOMITING, SWELLING, DYSPNEA Review of Systems ROS Statement: Those systems with pertinent positive or pertinent negative responses have been documented in the HPI. ROS Other: All systems not noted in ROS Statement are negative. Past Medical History Past Medical History: Asthma, Diabetes Mellitus, Hearing Disorder / Deafness, Skin Disorder Additional Past Medical History / Comment(s): SLEEP WALKS, HX OF MULTIPLE HERNIA REPAIR SURGERIES., RASH IN FOLDS OF ABDOMINAL APRON., HEARING IMPAIRED- STATES SHE WILL READ LIPS., WATCHES DIET- NO PROCESSED SUGAR. History of Any Multi-Drug Resistant Organisms: None Reported Past Surgical History: Section, Hernia Repair Additional Past Surgical History / Comment(s): HERNIA REPAIR X13, hernia incison repair. Panniculectomy Jan 2018. march 13 drain placed for seronmas. tuesday 03/20 changed drain Past Anesthesia/Blood Transfusion Reactions: Previous Problems w/ Anesthesia Additional Past Anesthesia/Blood Transfusion Reaction / Comment(s): PAIN WITH EPIDURAL WITH C-SECTIONS. Smoking Status: Never smoker Past Alcohol Use History: None Reported Past Drug Use History: None Reported - Past Family History Mother Family Medical History: Cancer Father Family Medical History: Cancer Brother(s) Family Medical History: Pulmonary Embolus General Exam Limitations: no limitations General appearance: alert, in no apparent distress Head exam: Present: atraumatic, normocephalic, normal inspection Respiratory exam: Present: normal lung sounds bilaterally. Absent: respiratory distress, wheezes, rales, rhonchi, stridor Cardiovascular Exam: Present: regular rate, normal rhythm, normal heart sounds. Absent: systolic murmur, diastolic murmur, rubs, gallop, clicks GI/Abdominal exam: Present: soft, tenderness (Mild suprapubic), normal bowel sounds. Absent: distended, guarding, rebound, rigid Back exam: Absent: CVA tenderness (R), CVA tenderness (L) Skin exam: Present: warm, dry, intact, normal color. Absent: rash Course Vital Signs 03/22/18 18:53 Temperature 98.1 F Pulse Rate 99 Respiratory 18 Rate Blood Pressure 126/83 O2 Sat by Pulse 99 Oximetry Medical Decision Making - Medical Decision Making 57-year-old female presented from for drain problems. The drain is falling out though his in a stable position. Case was discussed with Dr. Martinez on-call for . She recommends leaving the drain as is, writing prescription for IR drain placement tomorrow. Patient will be discharged at this time. Disposition Clinical Impression: Abdominal wall seroma Narrative: Abdominal drain complication Disposition: HOME SELF-CARE Condition: Stable Instructions: Seroma (DC) Additional Instructions: Follow up with outpatient services tomorrow.Please return to the Emergency Department if symptoms worsen or any other concerns. Is patient prescribed a controlled substance at d/c from ED?: No Referrals: Eliazar Ramirez MD [Primary Care Provider] - 1-2 days Time of Disposition: 20:43
[2018-03-22] MEDS ORDERED: ACET/COD 300 MG/30 MG STARTER PACK 6 TAB BTL PO STA (20:43)
[2018-03-22] MEDS ORDERED: ONDANSETRON 4 MG ODT STARTER PACK 2 TAB BTL PO STA (20:43)
[2018-03-22 21:15] VITALS: BP 112/78; PULSE 84; TEMP 97.8
== END 2018-03-22 21:15 | disposition home or self-care (01) ==
LOC: EC 18:32
DX: L76.34 Postprocedural seroma of skin and subcutaneous tissue following other procedure (principal); H91.90 Unspecified hearing loss, unspecified ear; E11.9 Type 2 diabetes mellitus without complications; Z88.5 Allergy status to narcotic agent; Z91.010 Allergy to peanuts; Z91.040 Latex allergy status; Z91.048 Other nonmedicinal substance allergy status; Z79.84 Long term (current) use of oral hypoglycemic drugs; Z79.899 Other long term (current) drug therapy
CPT/HCPCS: 99283

== ENCOUNTER 2018-03-26 08:07 | Day surgery (SDC) | payer MEDICARE, OTHER ==
[2018-03-26 09:31] VITALS: BP 138/72; PULSE 78; RESP 18; TEMP 98.1
== END 2018-03-26 09:15 | disposition home or self-care (01) ==
LOC: RADPROMAIN 08:07
PROVIDERS: ATTEND Surgery
DX: L76.34 Postprocedural seroma of skin and subcutaneous tissue following other procedure (principal)
CPT/HCPCS: 99213

== ENCOUNTER 2018-04-01 09:10 | Day surgery (SDC) | payer MEDICARE, OTHER ==
[2018-04-01 10:25] VITALS: BP 136/81; PULSE 86; RESP 14; TEMP 97.8
== END 2018-04-01 10:10 | disposition home or self-care (01) ==
LOC: RADPROMAIN 09:10
PROVIDERS: ATTEND Surgery
DX: T88.8XXA Other specified complications of surgical and medical care, not elsewhere classified, initial encounter (principal)
CPT/HCPCS: 87070; 87075; 87205

== ENCOUNTER 2018-04-06 09:29 | Day surgery (SDC) | payer MEDICARE, OTHER ==
[2018-04-06 12:11] VITALS: BP 145/78; PULSE 88; TEMP 97.8
== END 2018-04-06 10:45 | disposition home or self-care (01) ==
LOC: RADPROMAIN 09:29
PROVIDERS: ATTEND Surgery
DX: Z48.03 Encounter for change or removal of drains (principal)

== ENCOUNTER 2018-04-10 10:14 | Inpatient (IN) | payer MEDICARE, OTHER ==
[2018-04-08 11:46] VITALS: BMI 31.7
[~2018-04-10 10:14] MED LIST changes: +HYDROmorphone 0.5 MG/0.5 ML SYRINGE IVP PRN; -LIDOCAINE 1% 20 ML VIAL (10MG/ML) FOR IV START INTRADERMA PRN; -MIDAZOLAM 2 MG/2 ML VIAL IV PRN; +Pre Op ABX Message 1 EACH MISC MISCELLANE ONE; +SCOPOLAMINE 1.5MG/72HR PATCH TRANSDERM ONE; -ceFAZolin IN SWFI 2 GM/20 ML SYRINGE IVP ONE; -fentaNYL (PF) 50 MCG/ML 2 ML AMP IV PRN
--- NOTE | 2018-04-10 13:02 | P.GSHP ---
History of Present Illness H&P Date: 04/10/18 Chief Complaint: Infected seroma This a 57-year-old female who underwent panniculectomy with repair of incisional hernia in February. Patient developed an infected seroma. She's had increasing output through her JIM drain. She presents today for incision and drainage of seroma and packing of wound. Patient is aware the risk of wound infection. She understands she will need a wound VAC postoperatively. Past Medical History Past Medical History: Asthma, Diabetes Mellitus, Hearing Disorder / Deafness, Skin Disorder Additional Past Medical History / Comment(s): SLEEP WALKS, HX OF MULTIPLE HERNIA REPAIR SURGERIES., RASH IN FOLDS OF ABDOMINAL APRON., HEARING IMPAIRED- STATES SHE WILL READ LIPS., WATCHES DIET- NO PROCESSED SUGAR. History of Any Multi-Drug Resistant Organisms: None Reported Past Surgical History: Section, Hernia Repair, Orthopedic Surgery Additional Past Surgical History / Comment(s): HERNIA REPAIR X13, hernia incison repair,Bilat carpel tunnel. Panniculectomy Jan 2018 Past Anesthesia/Blood Transfusion Reactions: Previous Problems w/ Anesthesia Additional Past Anesthesia/Blood Transfusion Reaction / Comment(s): PAIN WITH EPIDURAL WITH C-SECTIONS. Smoking Status: Never smoker - Past Family History Mother Family Medical History: Cancer Father Family Medical History: Cancer Brother(s) Family Medical History: Pulmonary Embolus Medications and Allergies Home Medications Medication Instructions Recorded Confirmed Type Cetirizine HCl 10 mg PO QAM 01/23/18 04/08/18 History Furosemide [Lasix] 80 mg PO QAM 01/23/18 04/08/18 History metFORMIN HCL 1,000 mg PO BID-W/MEALS 01/23/18 04/08/18 History Potassium Bicarbonate/Cit AC 1 meq PO DAILY 03/13/18 04/08/18 History [Potassium 25 Meq Tablet Eff] Biotin 5,000 mcg PO QAM 04/08/18 04/08/18 History Cholecalciferol (Vitamin D3) 5,000 unit PO QAM 04/08/18 04/08/18 History [Vitamin D3] Hydrocortisone Oint 1 applic TOPICAL BID 04/08/18 04/08/18 History [Hydrocortisone 2.5% Oint] Levofloxacin [Levaquin] 500 mg PO QAM 04/08/18 04/08/18 History Allergies Allergy/AdvReac Type Severity Reaction Status Date / Time latex Allergy Severe Anaphylaxis Verified 04/10/18 12:53 morphine Allergy Severe Anaphylaxis Verified 04/10/18 12:53 peanut Allergy Severe Anaphylaxis Verified 04/10/18 12:53 perfume Allergy Severe DIARRHEA, Verified 04/10/18 12:53 VOMITING, EYE SWELLING, DIFFICULTY BREATHING. amoxicillin [From Augmentin] Allergy Rash/Hives Verified 04/10/18 12:53 clavulanic acid Allergy Rash/Hives Verified 04/10/18 12:53 [From Augmentin] hydromorphone [From Dilaudid] Allergy Anaphylaxis Verified 04/10/18 12:53 Penicillins Allergy Rash/Hives Verified 04/10/18 12:53 FRAGRENCES -VANILLA, Allergy Unknown DIARRHEA, Uncoded 04/10/18 12:53 CINNAMON, VOMITING, SWELLING, DYSPNEA Surgical - Exam - General well developed, well nourished, no distress - Eyes PERRL - ENT normal pinna - Neck no masses - Respiratory normal expansion - Cardiovascular Rhythm: regular - Abdomen Abdomen soft. There is a rash in the area of her radiologic drain related to adhesive. The abdomen is nontender. Abdomen: soft Assessment and Plan Assessment: History of infected seroma. Patient undergo incision and drainage. She'll have her wound packed postoperative period
[2018-04-10] MEDS ORDERED: LIDOCAINE 1% 20 ML VIAL (10MG/ML) FOR IV START INTRADERMA ONE (13:30)
[2018-04-10] MEDS: LACTATED RINGERS 1,000 ML IV SCH (13:30)
[2018-04-10 13:37] LABS: Glucose,Whole Blood 102 mg/dL (75-99)
[2018-04-10] MEDS ORDERED: PROPOFOL 10 MG/ML 20 ML VIAL IV ONE (14:43)
[2018-04-10] MEDS ORDERED: SUCCINYLCHOLINE CHLORIDE 100 MG/5 ML SYR IV ONE (14:43)
[2018-04-10] MEDS ORDERED: fentaNYL (PF) 50 MCG/ML 2 ML AMP ONE (14:43)
[2018-04-10] MEDS ORDERED: MIDAZOLAM 2 MG/2 ML VIAL ONE (14:43)
[2018-04-10] MEDS ORDERED: LIDOCAINE 1% INJ 10MG/ML (20 ML MDV) ONE (14:43)
[2018-04-10] MEDS ORDERED: BUPIVACAIN-EPI 0.25%-1:200,000 30 ML VIAL SQ ONE (15:04)
[2018-04-10] MEDS ORDERED: LACTATED RINGERS 1,000 ML IV ONE (15:19)
[2018-04-10] MEDS ORDERED: ACETAMINOPHEN TAB 325 MG TAB PO PRN (15:19)
[2018-04-10] MEDS ORDERED: NALOXONE 0.4 MG/ML 1 ML VIAL IV PRN (15:19)
[2018-04-10] MEDS ORDERED: HYDROcodone/APAP 5-325MG 1 EACH TAB PO PRN (15:19)
[2018-04-10] MEDS ORDERED: ONDANSETRON 4 MG/2 ML VIAL IVP PRN (15:19)
[2018-04-10] MEDS ORDERED: HYDROmorphone 0.5 MG/0.5 ML SYRINGE IVP PRN (15:19)
--- NOTE | 2018-04-10 15:27 | P.OP ---
Date of Procedure: 04/10/18 Preoperative Diagnosis: Infected abdominal wall seroma Postoperative Diagnosis: Infected abdominal wall seroma Procedure(s) Performed: Incision and drainage of infected abdominal wall seroma Anesthesia: JAIR Surgeon: Robby Frederick Pathology: other (Culture) Condition: stable Disposition: PACU Description of Procedure: Patient's placed on the operative table in the supine position. She received general anesthesia. Her abdomen was prepped and draped usual sterile fashion. The patient's low midline incision was incised to midline. Subcutaneous tissue divided with cautery. And then the seroma cavity was entered. The seroma cavities quite large. It extended over to the right lateral abdominal wall. There is some fibrinopurulent material within the stomach cavity this was debrided with a surgical sponge. A culture was obtained. There was coverage of the previously placed mesh. The mesh was not exposed. The wound was packed with wet-to-dry Kerlix. Patient tolerated well and sent to recovery in stable condition.
[2018-04-10] MEDS: KETOROLAC 30 MG/ML 1 ML VIAL IVP SCH ×2 (16:01→21:59)
[2018-04-10] MEDS ORDERED: MEPERIDINE 50 MG/ML SYRINGE IVP ONE (16:08)
[2018-04-10] MEDS ORDERED: VANCOMYCIN IV PER PHARMACY 1 EACH MISC MISCELLANE PRN (16:13)
[2018-04-10] MEDS ORDERED: MEPERIDINE 50 MG/ML SYRINGE IM PRN (16:15)
[2018-04-10 16:45] LABS: Glucose,Whole Blood 135 mg/dL (75-99)
[2018-04-10] MEDS ORDERED: VANCOMYCIN 2,000 MG in SODIUM CHLORIDE 0.9% 500 ML 500 ML IVPB ONE (17:30)
[2018-04-10 18:51] LABS: Basophils # (A) 0.1 k/uL (0-0.2); Basophils % (A) 1 %; Eosinophils % (A) 0 %; HCT 35.1 % (34.0-46.0); HGB 10.8 gm/dL (11.4-16.0); Hypochromasia Slight; Lymphocytes # (A) 1.6 k/uL (1.0-4.8); Lymphocytes % (A) 11 %; MCH 25.5 pg (25.0-35.0); MCHC 30.8 g/dL (31.0-37.0); MCV 82.6 fL (80.0-100.0); Mean Platelet Volume 6.9; Monocytes # (A) 0.2 k/uL (0-1.0); Monocytes % (A) 2 %; Neutrophils # (A) 12.7 k/uL (1.3-7.7); Neutrophils % (A) 86 %; Platelet Count 591 k/uL (150-450); RBC 4.25 m/uL (3.80-5.40); RDW 15.4 % (11.5-15.5); WBC 14.7 k/uL (3.8-10.6)
[2018-04-10 18:55] LABS: Anion Gap 11 mmol/L; Blood Urea Nitrogen 12 mg/dL (7-17); Calcium 9.6 mg/dL (8.4-10.2); Carbon Dioxide 26 mmol/L (22-30); Chloride 102 mmol/L (98-107); Glucose 233 mg/dL (74-99); Potassium 4.3 mmol/L (3.5-5.1); Sodium 139 mmol/L (137-145)
[2018-04-10 21:02] LABS: Glucose,Whole Blood 275 mg/dL (75-99)
[2018-04-10] MEDS: DOCUSATE 100 MG CAP PO SCH (21:59)
[2018-04-10] MEDS: INSULIN ASPART 100 UNIT/ML 1 ML 10 ML VIAL SQ SCH (22:01)
[2018-04-10] MEDS: TRIAMCINOLONE ACET 0.1% OINTMENT 15 GM TUBE TOPICAL SCH (22:45)
[2018-04-11] MEDS: traMADol 50 MG TAB PO PRN ×3 (00:48→20:20)
[2018-04-11] MEDS: LACTATED RINGERS 1,000 ML IV SCH (02:14)
[2018-04-11] MEDS: KETOROLAC 30 MG/ML 1 ML VIAL IVP SCH ×4 (03:34→23:11)
[2018-04-11 03:44] LABS: Hemoglobin A1C 6.4 % (4.0-6.0)
--- NOTE | 2018-04-11 04:33 | CONS ---
CONSULTATION DATE OF SERVICE: 04/10/2018 REASON FOR CONSULTATION: Infected abdominal wound/infected seroma antibiotic and local wound care arrangement. HISTORY OF PRESENT ILLNESS: The patient is a 57-year-old female, the patient is status post panniculectomy in January of 2018. The patient apparently seemed to have a problem with nonhealing of the wound and development of a seroma. Apparently had to be removal of the drain currently by the patient. The patient presented to hospital today for drainage of seroma and packing of the wound. The patient was taken to the OR. She was noticed to have significant deep seroma and some mucopurulent drainage, concern for possible infection. Culture has been obtained. The patient has been admitted to the hospital. I was asked to see the patient for recommendation regarding antibiotic as well as local wound care. The patient will likely need wound VAC on discharge. The patient has been afebrile. The patient has been complaining of pain to the abdominal wall before she was admitted to the hospital with more almost 6 to 7 out of 10, and no radiation. The patient denies having any nausea, vomiting. Denies having any chest pain. No shortness of breath. No cough. No diarrhea and no burning or frequency of urine. REVIEW OF SYSTEMS: Positive points have been mentioned in the HPI. The rest of the 14 systems has been negative. PAST MEDICAL HISTORY: Asthma, diabetes mellitus, and eating disorder. PAST SURGICAL HISTORY: , hernia repair, bilateral carpal tunnel and the panniculectomy . SOCIAL HISTORY: Denies smoking, drinking, or drug use. FAMILY HISTORY: Both parents with history of cancer though types not documented. ALLERGIES: MULTIPLE MEDICATIONS, INCLUDING AMOXICILLIN, LATEX, MORPHINE. MEDICATIONS: The patient is currently on Tylenol, Hesperus, vitamin D3, Lovenox, Lasix, NovoLog, Toradol, lactated Ringers, Demerol, Glucophage, Narcan, Zofran, Ultram and she has been on Levaquin in the outpatient setting. PHYSICAL EXAMINATION: Blood pressure is 115/57 with a pulse of 95, temperature 98.3. She is 95% on room air. General description is a middle aged female lying in bed in no distress. No tachypnea or accessory muscles of respiration use. HEENT: Shows pallor. No scleral icterus. Oral mucosa membranes are moist. No pharyngeal erythema or thrush. Neck: Trachea central. No thyromegaly. Lungs: Unlabored breathing. Clear to auscultation anteriorly. No wheeze or crackles. Heart S1, S2. Regular rate and rhythm. ABDOMEN: Soft. The abdominal wound had just been packed. Post surgery with abdominal binder will be examined tomorrow. EXTREMITIES: No edema of the feet. Skin examination: No rash or mass palpable. Neurological: Patient is awake, alert, oriented x3. Mood and affect normal. LABS: Hemoglobin 10.8, white count 14.7, BUN of 12, creatinine 0.78. Cultures done, currently pending. DIAGNOSTIC IMPRESSION AND PLAN: 1. Patient with abdominal wound infection. The patient did have a history of panniculitis status post panniculectomy back in January of 2018, now with possible infected seroma, status post drainage. We will likely need to cover for the gram- positive skin gregg to with likely pathogen underlying gram negative infection less likely but not entirely excluded. 2. Patient with PENICILLIN ALLERGY that will limit the number of antibiotics that could be safe to use. PLAN: 1. Wound culture has been obtained. Those will be followed. 2. We will add vancomycin, pharmacy to dose, target of 15, while waiting for the culture to finalize. 3. The patient will likely need wound VAC in order to help healing of this wound. We will try to see if we can arrange the wound VAC tomorrow which it can be. Should be able to go home with close outpatient followup. 4. We will follow up on clinical condition and culture to further adjust medication if needed. Thank you for this consultation. We will follow this patient along with you. MMODL / IJN: [id number] /
[2018-04-11] MEDS: VANCOMYCIN 1,750 MG in SODIUM CHLORIDE 0.9% 500 ML 500 ML IVPB SCH ×2 (05:14→18:20)
[2018-04-11 07:15] LABS: Glucose,Whole Blood 199 mg/dL (75-99)
[2018-04-11] MEDS: ENOXAPARIN 40 MG/0.4 ML SYRINGE SQ SCH (07:55)
[2018-04-11] MEDS: INSULIN ASPART 100 UNIT/ML 1 ML 10 ML VIAL SQ SCH ×4 (07:56→20:59)
[2018-04-11] MEDS: CHOLECALCIFEROL 1,000 UNIT TAB PO SCH (07:56)
[2018-04-11] MEDS: metFORMIN 500 MG TAB PO SCH ×2 (07:56→17:56)
[2018-04-11] MEDS: DOCUSATE 100 MG CAP PO SCH ×2 (07:57→20:23)
[2018-04-11] MEDS: FUROSEMIDE 80 MG TAB PO SCH (07:57)
[2018-04-11] MEDS: LORATADINE 10 MG TAB PO SCH (07:57)
[2018-04-11] MEDS: POTASSIUM BICARBONATE/CIT AC 20 MEQ TABLET.EFF PO SCH (07:57)
[2018-04-11] MEDS: TRIAMCINOLONE ACET 0.1% OINTMENT 15 GM TUBE TOPICAL SCH ×2 (07:58→20:23)
[2018-04-11 08:23] LABS: Basophils % (A) 0 %; Eosinophils # (A) 0.1 k/uL (0-0.7); Eosinophils % (A) 0 %; HCT 31.7 % (34.0-46.0); HGB 9.7 gm/dL (11.4-16.0); Hypochromasia Moderate; Lymphocytes # (A) 1.9 k/uL (1.0-4.8); Lymphocytes % (A) 11 %; MCH 24.8 pg (25.0-35.0); MCHC 30.5 g/dL (31.0-37.0); MCV 81.2 fL (80.0-100.0); Mean Platelet Volume 6.3; Monocytes # (A) 0.7 k/uL (0-1.0); Monocytes % (A) 4 %; Neutrophils # (A) 14.6 k/uL (1.3-7.7); Neutrophils % (A) 84 %; Platelet Count 602 k/uL (150-450); RDW 14.9 % (11.5-15.5); WBC 17.4 k/uL (3.8-10.6)
[2018-04-11] MEDS ORDERED: NON-FORMULARY DRUG (Biotin [Biotin] 5,000 MCG) PO SCH (09:00)
--- NOTE | 2018-04-11 10:09 | P.PN ---
Subjective Progress Note Date: 04/11/18 Principal diagnosis: Infected seroma Patient doing fairly well today. Pain is improved. White blood cell count 17.4. Some drainage from the incision site. No fevers. Tolerating diet. Objective - Vital Signs Vital signs: Vital Signs Temp 97.5 F L 04/11/18 08:03 Pulse 82 04/11/18 08:03 Resp 16 04/11/18 08:03 BP 109/70 04/11/18 08:03 Pulse Ox 95 04/11/18 08:03 Intake & Output 04/10/18 04/11/18 04/11/18 18:59 06:59 18:59 Intake Total 500 Output Total 15 Balance 485 Weight 97.522 kg Intake: IV 500 Output: Estimated Blood Loss 15 Other: # Voids 2 - Exam Abdomen: Soft, nondistended, wound clean, no bleeding - Labs CBC & Chem 7: 04/11/18 07:33 04/10/18 18:13 Labs: Abnormal Lab Results - Last 24 Hours (Table) 04/10/18 04/10/18 04/10/18 Range/Units 13:30 16:20 18:13 WBC 14.7 H (3.8-10.6) k/uL Hgb 10.8 L (11.4-16.0) gm/dL Hct (34.0-46.0) % MCH (25.0-35.0) pg MCHC 30.8 L (31.0-37.0) g/dL Plt Count 591 H (150-450) k/uL Neutrophils # 12.7 H (1.3-7.7) k/uL Glucose (74-99) mg/dL POC Glucose (mg/dL) 102 H 135 H (75-99) mg/dL Hemoglobin A1c (4.0-6.0) % 04/10/18 04/10/18 04/10/18 Range/Units 18:13 19:03 20:50 WBC (3.8-10.6) k/uL Hgb (11.4-16.0) gm/dL Hct (34.0-46.0) % MCH (25.0-35.0) pg MCHC (31.0-37.0) g/dL Plt Count (150-450) k/uL Neutrophils # (1.3-7.7) k/uL Glucose 233 H (74-99) mg/dL POC Glucose (mg/dL) 275 H (75-99) mg/dL Hemoglobin A1c 6.4 H (4.0-6.0) % 04/11/18 04/11/18 Range/Units 07:04 07:33 WBC 17.4 H (3.8-10.6) k/uL Hgb 9.7 L (11.4-16.0) gm/dL Hct 31.7 L (34.0-46.0) % MCH 24.8 L (25.0-35.0) pg MCHC 30.5 L (31.0-37.0) g/dL Plt Count 602 H (150-450) k/uL Neutrophils # 14.6 H (1.3-7.7) k/uL Glucose (74-99) mg/dL POC Glucose (mg/dL) 199 H (75-99) mg/dL Hemoglobin A1c (4.0-6.0) % Microbiology - Last 24 Hours (Table) 04/10/18 15:09 Gram Stain - Preliminary Abdomen Wound Culture - Preliminary 04/10/18 15:09 Anaerobic Culture - Preliminary Abdomen Assessment and Plan (1) Abdominal wall seroma Narrative/Plan: Begin local wound care today. Continue antibiotics. Likely will plan wound VAC prior to discharge. Follow cultures. Current Visit: No Status: Acute Code(s): S30.1XXA - CONTUSION OF ABDOMINAL WALL, INITIAL ENCOUNTER SNOMED Code(s): 787482600
[2018-04-11 12:18] LABS: Glucose,Whole Blood 220 mg/dL (75-99)
[2018-04-11 17:38] LABS: Glucose,Whole Blood 144 mg/dL (75-99)
[2018-04-11 20:44] LABS: Glucose,Whole Blood 129 mg/dL (75-99)
[2018-04-11] MEDS: POLYETHYLENE GLYCOL 3350 17 GM POWD.PACK PO SCH (21:17)
--- NOTE | 2018-04-12 00:18 | PN ---
PROGRESS NOTE DATE OF SERVICE: 04/11/2018. REASON FOR FOLLOWUP VISIT: Infected abdominal wall seroma, status post drainage with worsening leukocytosis. INTERVAL HISTORY: The patient is currently afebrile. Abdominal pain is currently controlled with pain medication. The patient denies any worsening. Denies having any chest pain, shortness of breath, cough. No nausea, vomiting, or any diarrhea. PHYSICAL EXAMINATION: Blood pressure is 130/81 with a pulse of 83, temperature 98.3. She is 97% on room air. General description is a middle aged female lying in bed in no distress. Respiratory system: Unlabored breathing. Clear to auscultation anteriorly. Heart S1, S2. Regular rate and rhythm. Abdomen soft. Wound base with minimal slough tissue. No purulence was noted. Minimal surrounding induration but no fluctuation or any foul smelling drainage. LABS: White count slightly elevated at 17.4 today. BUN of 12, creatinine 0.788. Cultures are currently pending. DIAGNOSTIC IMPRESSION AND PLAN: Patient who is status post panniculectomy, now with development of a infected seroma, status post drainage with lower abdominal wound. The patient is currently covered with vancomycin. However the white count has showed an upward trend. Will add Azactam for gram-negative coverage as the patient does have a history of PENICILLIN allergy adjusting antibiotic further on the basis of the cultures and clinical response. Local wound care currently controlled with wet-to-dry dressing. We will discuss with surgery for application of the wound VAC. Continue supportive care. MMODL / IJN: [id number] /
[2018-04-12] MEDS: VANCOMYCIN 1,750 MG in SODIUM CHLORIDE 0.9% 500 ML 500 ML IVPB SCH ×2 (01:32→13:49)
[2018-04-12] MEDS: AZTREONAM 2 GM in SODIUM CHLORIDE 0.9% 100 ML IVPB SCH ×3 (02:01→21:53)
[2018-04-12] MEDS: KETOROLAC 30 MG/ML 1 ML VIAL IVP SCH ×2 (03:36→09:16)
[2018-04-12] MEDS: LACTATED RINGERS 1,000 ML IV SCH (05:07)
[2018-04-12 07:08] LABS: Glucose,Whole Blood 118 mg/dL (75-99)
[2018-04-12] MEDS: INSULIN ASPART 100 UNIT/ML 1 ML 10 ML VIAL SQ SCH ×4 (08:01→21:53)
[2018-04-12] MEDS: POLYETHYLENE GLYCOL 3350 17 GM POWD.PACK PO SCH (09:17)
[2018-04-12] MEDS: TRIAMCINOLONE ACET 0.1% OINTMENT 15 GM TUBE TOPICAL SCH ×2 (09:17→22:02)
[2018-04-12] MEDS: ENOXAPARIN 40 MG/0.4 ML SYRINGE SQ SCH (09:17)
[2018-04-12] MEDS: CHOLECALCIFEROL 1,000 UNIT TAB PO SCH (09:18)
[2018-04-12] MEDS: POTASSIUM BICARBONATE/CIT AC 20 MEQ TABLET.EFF PO SCH (09:19)
[2018-04-12] MEDS: metFORMIN 500 MG TAB PO SCH ×2 (09:20→18:12)
[2018-04-12] MEDS: DOCUSATE 100 MG CAP PO SCH ×2 (09:21→21:51)
[2018-04-12] MEDS: LORATADINE 10 MG TAB PO SCH (09:21)
[2018-04-12] MEDS: FUROSEMIDE 80 MG TAB PO SCH (09:21)
--- NOTE | 2018-04-12 11:48 | P.PN ---
Subjective Progress Note Date: 04/12/18 Principal diagnosis: Infected seroma Patient doing well today. Pain is improved. T-max 99.2. Objective - Vital Signs Vital signs: Vital Signs Temp 98.6 F 04/12/18 07:06 Pulse 87 04/12/18 07:06 Resp 18 04/12/18 07:06 BP 111/70 04/12/18 07:06 Pulse Ox 93 L 04/12/18 07:06 Intake & Output 04/11/18 04/12/18 04/12/18 18:59 06:59 18:59 Intake Total 160 900 Balance 160 900 Intake: Intake, IV Titration 160 500 Amount Lactated Ringers 1,000 ml 160 @ 20 mls/hr IV .Q24H FILI Rx#:[id number] Vancomycin 1,750 mg In 500 Sodium Chloride 0.9% 500 ml 500 ml @ 167 mls/hr IVPB Q12H FILI Rx#: [id number] Oral 400 Other: # Voids 2 2 - Exam Abdomen: Soft, mild tender is, wound clean - Labs CBC & Chem 7: 04/11/18 07:33 04/10/18 18:13 Labs: Abnormal Lab Results - Last 24 Hours (Table) 04/11/18 04/11/18 04/11/18 Range/Units 12:07 17:27 20:33 POC Glucose (mg/dL) 220 H 144 H 129 H (75-99) mg/dL 04/12/18 Range/Units 06:50 POC Glucose (mg/dL) 118 H (75-99) mg/dL Microbiology - Last 24 Hours (Table) 04/10/18 15:09 Gram Stain - Preliminary Abdomen Wound Culture - Preliminary Assessment and Plan (1) Abdominal wall seroma Narrative/Plan: Continue local wound care. Follow cultures. Continue antibiotics. Wound VAC placement. Patient prefers Dr. Frederick evaluate the room prior to wound VAC placement tomorrow. Current Visit: No Status: Acute Code(s): S30.1XXA - CONTUSION OF ABDOMINAL WALL, INITIAL ENCOUNTER SNOMED Code(s): 173255776
[2018-04-12] MEDS ORDERED: ALBUTEROL NEB (CONC) 2.5 MG/0.5 ML INHALATION SCH (12:00)
[2018-04-12 12:13] LABS: Glucose,Whole Blood 118 mg/dL (75-99)
[2018-04-12] MEDS: traMADol 50 MG TAB PO PRN ×3 (13:16→23:18)
[2018-04-12] MEDS: ALBUTEROL NEBULIZED 2.5 MG/3 ML INHALATION SCH ×4 (13:21→21:51)
[2018-04-12 17:19] LABS: Glucose,Whole Blood 125 mg/dL (75-99)
--- NOTE | 2018-04-12 18:53 | CONS ---
CONSULTATION Antonina Tena is a 57-year-old female who came into [facility] because of seroma. She underwent surgery which showed that she had a seroma that was infected. Subsequently, she has been seen by ID as well. PAST MEDICAL HISTORY: Positive for asthma, diabetes, and eating disorder. SURGICAL HISTORY: Positive for recent panniculectomy, , hernia repairs. FAMILY HISTORY: Positive for cancer in both of her parents. ALLERGIES: AMOXICILLIN, LATEX, AND MORPHINE. MEDICATIONS PRIOR TO ADMISSION: Were metformin, potassium bicarbonate with citric acid, Levaquin, hydrocortisone, Lasix, vitamin D3, cetirizine and biotin. REVIEW OF SYSTEMS: Noncontributory other than for what is described in History of Present Illness and Past Medical History. PHYSICAL EXAMINATION: Blood pressure is 114/76, respiratory rate of 18, pulse rate of 100, temperature 98.1, O2 saturation on room air is 98%. HEENT reveals pupils that are equal. Chest reveals decreased breath sounds, no wheeze. Cardiovascular system reveals an S1, S2. Abdomen is soft. There is 1+ pedal edema. LABS: Reveal white count of 17.4, hemoglobin 9.7, blood sugar 129. IMPRESSION: 1. Infected seroma status post. 2. Recent panniculectomy. 3. Diabetes mellitus type 2. 4. Obesity. 5. Asthma. At this point in time, keep her on insulin sliding scale. Continue her on antibiotics per ID in the form of Azactam. Continue GI and DVT prophylaxis. Continue vancomycin. Her prognosis is fair. MMODL / IJN: [id number] /
[2018-04-12] MEDS: BUDESONIDE 0.5 MG/2 ML NEBU INHALATION SCH ×2 (19:29→21:51)
[2018-04-12] MEDS ORDERED: BUDESONIDE 0.5 MG/2 ML NEBU INHALATION SCH (20:00)
[2018-04-12 21:00] LABS: Glucose,Whole Blood 161 mg/dL (75-99)
[2018-04-12] MEDS: FAMOTIDINE 20 MG TAB PO SCH (21:51)
--- NOTE | 2018-04-12 23:25 | PN ---
PROGRESS NOTE DATE OF SERVICE: 04/12/2018. REASON FOR FOLLOW UP: Infected abdominal wall seroma. INTERVAL HISTORY: The patient is currently afebrile. She is breathing comfortably. Denies having any chest pain. No shortness of breath or cough. No nausea, vomiting, or any worsening abdominal pain. PHYSICAL EXAMINATION: Blood pressure is 114/70 with a pulse of 100. Temperature 98.1. She is 98% on room air. General description is a middle aged female lying in bed in no distress. Respiratory system: Unlabored breathing. Clear to auscultation anteriorly. Heart S1, S2. Regular rate and rhythm. Abdomen soft, no tenderness. Extremities: No edema of the feet. LABS: No new labs been obtained today. Cultures are currently pending. DIAGNOSTIC IMPRESSION AND PLAN: Patient with infected abdominal wall seroma, status post drainage. Waiting for the cultures to be finalized and arrangements for the wound VAC for the outpatient setting. Once the wound VAC is arranged, she should be able to go home from ID standpoint. Prescription has been left with the patient's RN. Continue with supportive care. MMODL / IJN: [id number] /
[2018-04-13] MEDS: VANCOMYCIN 1,750 MG in SODIUM CHLORIDE 0.9% 500 ML 500 ML IVPB SCH (01:54)
[2018-04-13] MEDS: LACTATED RINGERS 1,000 ML IV SCH (06:00)
[2018-04-13 07:13] LABS: Glucose,Whole Blood 109 mg/dL (75-99)
[2018-04-13 08:00] VITALS: RESP 16
[2018-04-13] MEDS: ALBUTEROL NEBULIZED 2.5 MG/3 ML INHALATION SCH ×3 (09:00→16:43)
[2018-04-13] MEDS: BUDESONIDE 0.5 MG/2 ML NEBU INHALATION SCH (09:00)
[2018-04-13] MEDS: INSULIN ASPART 100 UNIT/ML 1 ML 10 ML VIAL SQ SCH (09:03)
[2018-04-13 09:38] LABS: Basophils # (A) 0.1 k/uL (0-0.2); Basophils % (A) 0 %; Eosinophils # (A) 0.4 k/uL (0-0.7); Eosinophils % (A) 4 %; HCT 28.2 % (34.0-46.0); HGB 8.6 gm/dL (11.4-16.0); Hypochromasia Moderate; Lymphocytes # (A) 2.2 k/uL (1.0-4.8); Lymphocytes % (A) 21 %; MCH 24.9 pg (25.0-35.0); MCHC 30.6 g/dL (31.0-37.0); MCV 81.6 fL (80.0-100.0); Mean Platelet Volume 6.2; Monocytes # (A) 0.4 k/uL (0-1.0); Monocytes % (A) 4 %; Neutrophils # (A) 7.3 k/uL (1.3-7.7); Neutrophils % (A) 69 %; Platelet Count 486 k/uL (150-450); RBC 3.45 m/uL (3.80-5.40); RDW 15.3 % (11.5-15.5); WBC 10.6 k/uL (3.8-10.6)
[2018-04-13 09:46] LABS: Anion Gap 7 mmol/L; Blood Urea Nitrogen 11 mg/dL (7-17); Calcium 9.1 mg/dL (8.4-10.2); Carbon Dioxide 26 mmol/L (22-30); Chloride 109 mmol/L (98-107); Glucose 154 mg/dL (74-99); Potassium 3.8 mmol/L (3.5-5.1); Sodium 142 mmol/L (137-145)
[2018-04-13] MEDS: POLYETHYLENE GLYCOL 3350 17 GM POWD.PACK PO SCH (09:56)
[2018-04-13] MEDS: AZTREONAM 2 GM in SODIUM CHLORIDE 0.9% 100 ML IVPB SCH (09:57)
[2018-04-13] MEDS: ENOXAPARIN 40 MG/0.4 ML SYRINGE SQ SCH (09:57)
[2018-04-13] MEDS: POTASSIUM BICARBONATE/CIT AC 20 MEQ TABLET.EFF PO SCH (09:58)
[2018-04-13] MEDS: FAMOTIDINE 20 MG TAB PO SCH (09:59)
[2018-04-13] MEDS: metFORMIN 500 MG TAB PO SCH (09:59)
[2018-04-13] MEDS: CHOLECALCIFEROL 1,000 UNIT TAB PO SCH (09:59)
[2018-04-13] MEDS: DOCUSATE 100 MG CAP PO SCH (10:00)
[2018-04-13] MEDS: LORATADINE 10 MG TAB PO SCH (10:00)
[2018-04-13] MEDS: FUROSEMIDE 80 MG TAB PO SCH (10:00)
[2018-04-13] MEDS: TRIAMCINOLONE ACET 0.1% OINTMENT 15 GM TUBE TOPICAL SCH (10:01)
[2018-04-13 12:04] LABS: Glucose,Whole Blood 124 mg/dL (75-99)
--- NOTE | 2018-04-13 13:14 | P.DS ---
Providers Date of admission: 04/12/18 11:36 Expected date of discharge: 04/13/18 Attending physician: Robby Frederick Consults: 04/10/18 15:19 Consult Physician Routine Consulting Provider: Gee Cuevas Consult Reason/Comments: wound vac Do you want consulting provider notified?: Yes 04/10/18 15:27 Consult Physician Routine Consulting Provider: Eliazar Ramirez Consult Reason/Comments: Medical management Do you want consulting provider notified?: Yes Primary care physician: Eliazar [facility] Course: 57-year-old female who underwent panniculectomy with repair of incisional hernia in February 2018. Patient developed an infected seroma. Patient underwent I & D of infected abdominal wall seroma. Wound care with wet to dry kerlex during hospitalization. Postoperatively, patient did well and is stable for discharge home today. Wound VAC will be applied per home care nurse this afternoon. Bactrim sent to patients pharmacy per ID. See EMR for further details. Discharge diagnosis: 1. S/P I & D of infected abdominal wall seroma 2. History of panniculectomy with repair of incisional hernia in February 2018 Nurse practitioner note has been reviewed by physician. Signing provider agrees with the documented findings, assessment, and plan of care. Plan - Discharge Summary New Discharge Prescriptions: New traMADol HCl [Ultram] 50 mg PO Q6H PRN #12 tab PRN Reason: Mild To Moderate Pain Sulfamethox-Tmp 800-160Mg [Bactrim DS 800-160 mg] 1 tab PO Q12HR #14 tab Docusate [Colace] 100 mg PO BID #60 cap Continue metFORMIN HCL 1,000 mg PO BID-W/MEALS Furosemide [Lasix] 80 mg PO QAM Cetirizine HCl 10 mg PO QAM Hydrocortisone Oint [Hydrocortisone 2.5% Oint] 1 applic TOPICAL BID Cholecalciferol (Vitamin D3) [Vitamin D3] 5,000 unit PO QAM Biotin 5,000 mcg PO QAM Discontinued Potassium Bicarbonate/Cit AC [Potassium 25 Meq Tablet Eff] 25 meq PO DAILY Levofloxacin [Levaquin] 500 mg PO QAM Discharge Medication List Cetirizine HCl 10 mg PO QAM 01/23/18 [History] Furosemide [Lasix] 80 mg PO QAM 01/23/18 [History] metFORMIN HCL 1,000 mg PO BID-W/MEALS 01/23/18 [History] Biotin 5,000 mcg PO QAM 04/08/18 [History] Cholecalciferol (Vitamin D3) [Vitamin D3] 5,000 unit PO QAM 04/08/18 [History] Hydrocortisone Oint [Hydrocortisone 2.5% Oint] 1 applic TOPICAL BID 04/08/18 [ History] Docusate [Colace] 100 mg PO BID #60 cap 04/13/18 [Rx] Sulfamethox-Tmp 800-160Mg [Bactrim DS 800-160 mg] 1 tab PO Q12HR #14 tab [Rx] traMADol HCl [Ultram] 50 mg PO Q6H PRN #12 tab 04/13/18 [Rx] Follow up Appointment(s)/Referral(s): [facility] [NON-STAFF] - As Needed Eliazar Ramirez MD [Primary Care Provider] - 1 Week Gee Cuevas MD [STAFF PHYSICIAN] - 1 Week Robby Frederick MD [STAFF PHYSICIAN] - 04/16/18 4:15 pm Activity/Diet/Wound Care/Special Instructions: Wound care to abdominal wound with a Wound VAC Black Foam Continuous Pressure 1 25 MmHg Patient to follow up with Dr. cuevas in the wound care center next week call to make an appointment Do not taking your potassium supplement while you are taking Bactrim. You may resume it after you have completed course of Bactrim. No lifting over 10 [address] while taking Narcotics You may shower if you are able to protect wound vac from getting wet. Otherwise , it is best to sponge bathe.
[2018-04-13 14:36] VITALS: BP 132/80; PULSE 94; TEMP 98.1
--- NOTE | 2018-04-13 15:30 | PN ---
PROGRESS NOTE DATE OF SERVICE: 04/13/2018 REASON FOR FOLLOWUP: Infected abdominal wall seroma. INTERVAL HISTORY: The patient is currently afebrile, she is breathing comfortably. Denies having any chest pain. No shortness of breath, no cough. Denies any significant abdominal pain. No nausea, vomiting, or any diarrhea. PHYSICAL EXAMINATION: Blood pressure 132/80 with a pulse of 94, temperature 98.1, she is 96% on room air. General description is an elderly female, lying in bed in no distress. RESPIRATORY SYSTEM: Unlabored breathing, clear to auscultation anteriorly. HEART: S1, S2. Regular rate and rhythm. ABDOMEN: Soft, wound is currently packed. EXTREMITIES: No edema of the feet. LABS: White count normal at 10.6, creatinine 0.7. Culture was normal. Culture has been negative. DIAGNOSTIC IMPRESSION AND PLAN: Patient with an infected abdominal wall seroma, status post drainage, culture so far has been negative. Patient's white count has normalized. Will do a short course of oral Bactrim DS 1 twice a day for another 10 days. The patient has been advised not to take her potassium while taking the Bactrim DS. She will have a weekly BMP, local wound care with wound VAC with black foam, continuous pressure, to be changed Friday, Friday, Friday. Follow up in the wound care center next week. Continue supportive care. MMODL / IJN: [id number] /
[2018-04-14] MEDS ORDERED: VANCOMYCIN TROUGH DUE 1 EACH MISC MISCELLANE ONE (01:00)
--- NOTE | 2018-04-15 10:42 | CDI ---
Documentation Clarification Form Date: 04/15/2018 10:25:36 AM From: QUAN Whitehead; Amanda Boyer Gift Wrapper Phone: If you have a question about this query, please contact Amanda Boyer Gift Wrapper at [phone] between 8am and 5pm. Admit Date: 04/12/2018 11:36:00 AM Patient Name: Antonina Tena Visit Number: [id number] Discharge Date: 04/13/2018 4:54:00 PM ATTENTION: The Clinical Documentation Specialists (CDI) and [facility] Coding Staff appreciate your assistance in clarifying documentation. Please respond to the clarification below the line at the bottom and electronically sign. The CDI & [facility] Coding staff will review the response and follow-up if needed. Please note: Queries are made part of the Legal Health Record. If you have any questions, please contact the author of this message via ITS. Dr. Robby Frederick Per your progress notes/operative note, a debridement was performed on 2018. History/Risk Factors: DM, asthma, multiple hernia surgeries. Clinical Indicators: Infected seroma on abdominal wall. Treatment: Debridement. Per the operative note, there is some fibrinopurulent material within the stomach cavity, this as debrided with a surgical sponge. In order to capture the severity of condition and code the appropriate procedure ; could you please document the following: Excisional debridement (the removal of necrotic, devitalized tissue or slough by means of cutting away of tissue) Non-excisional debridement (the removal of necrotic, devitalized tissue or slough by means of flushing, brushing, or washing. (Irrigation) Other; please specify Unable to determine Non-excisional debridement of the devitalized tissue was performed by brushing and washing with irrigation. ROMEL
== END 2018-04-13 16:54 | disposition home or self-care (01) | DRG 908 ==
LOC: OR 10:14 → 4SSUR 15:30 → OR 04-12 11:36 → 4SSUR 04-12 11:36
PROVIDERS: ADMIT Surgery; ATTEND Surgery
PROC: 0JD80ZZ Extraction of Abdomen Subcutaneous Tissue and Fascia, Open Approach (ICD-10-PCS; principal; 2018-04-10 09:15)
DX: L76.34 Postprocedural seroma of skin and subcutaneous tissue following other procedure (principal); T81.41XA Infection following a procedure, superficial incisional surgical site, initial encounter; Y83.8 Other surgical procedures as the cause of abnormal reaction of the patient, or of later complication, without mention of misadventure at the time of the procedure; B99.8 Other infectious disease; E11.9 Type 2 diabetes mellitus without complications; E66.9 Obesity, unspecified; Z68.31 Body mass index [BMI] 31.0-31.9, adult; H91.90 Unspecified hearing loss, unspecified ear; J45.909 Unspecified asthma, uncomplicated; Z79.84 Long term (current) use of oral hypoglycemic drugs; Z86.59 Personal history of other mental and behavioral disorders; Z88.0 Allergy status to penicillin; Z88.5 Allergy status to narcotic agent; Z91.040 Latex allergy status
CPT/HCPCS: 80048; 83036; 85025; 87070; 87075; 87077; 87186; 87205; 94640

== ENCOUNTER → 2019-04-06 | Outpatient (CLI) | payer MEDICARE, OTHER ==
--- NOTE | 2019-04-06 15:21 | XR ---
EXAMINATION TYPE: XR chest 2V DATE OF EXAM: 04/06/2019 COMPARISON: Prior chest CT 02/04/2018 HISTORY: Shortness of breath TECHNIQUE: Frontal and lateral views of the chest are obtained. FINDINGS: There is no focal air space opacity, pleural effusion, or pneumothorax seen. The cardiac silhouette size is within normal limits. The osseous structures are intact, arthropathy present at the acromioclavicular joints, thoracic spondylosis is noted. IMPRESSION: No acute cardiopulmonary process.
== END | disposition home or self-care (01) ==
LOC: RADXRMAIN 14:36
PROVIDERS: ATTEND Family Medicine
DX: R06.02 Shortness of breath (principal)
CPT/HCPCS: 71046

== ENCOUNTER → 2021-07-28 | Outpatient (CLI) | payer MEDICARE, OTHER ==
[2021-07-28 16:15] LABS: HCT 43.3 % (37.2-46.3); HGB 13.6 g/dL (12.0-15.0); MCH 26.2 pg (27.0-32.0); MCHC 31.4 g/dL (32.0-37.0); MCV 83.4 fL (80.0-97.0); Mean Platelet Volume 10.8 fL (9.5-12.2); NRBC Per 100 WBC 0 /100 WBCS (0.0-0.0); Platelet Count 421 X 10*3/uL (140-440); RBC 5.19 X 10*6/uL (4.10-5.20); RDW 15.4 % (11.5-14.5); WBC 9.79 X 10*3/uL (4.50-10.00)
[2021-07-28 16:26] LABS: ALT 31 U/L (8-44); AST 21 U/L (13-35); African American GFR (CKD) 77.9 (60.0-200.0); Albumin 4.6 g/dL (3.8-4.9); Albumin/Globulin Ratio 1.49 (1.60-3.17); Alkaline Phosphatase 84 U/L (41-126); Blood Urea Nitrogen 16.1 mg/dL (9.0-27.0); Calcium 9.8 mg/dL (8.7-10.3); Carbon Dioxide 27.1 mmol/L (20.0-27.5); Chloride 101 mmol/L (96-109); Chol/HDL Ratio 4.64 Ratio; Follicle Stimulating Hormone 36.3 mIU/mL; Globulin 3.1 g/dL (1.6-3.3); Glucose 130 mg/dL (70-110); LDL Cholesterol,Calculated 93.8 mg/dL (0.0-131.0); Luteinizing Hormone 30.1 mIU/mL; Non-African American GFR(CKD) 67.2 (60.0-200.0); Potassium 3.4 mmol/L (3.5-5.5); Sodium 142 mmol/L (135-145); Total Protein 7.7 g/dL (6.2-8.2)
== END | disposition home or self-care (01) ==
LOC: LABWHC1 11:33
PROVIDERS: ATTEND Family Medicine
DX: Z00.00 Encounter for general adult medical examination without abnormal findings (principal); E11.9 Type 2 diabetes mellitus without complications
CPT/HCPCS: 36415; 80053; 80061; 82533; 83001; 83002; 83036; 84403; 84443; 85027

== ENCOUNTER → 2023-01-10 | Outpatient (CLI) | payer MEDICARE, OTHER ==
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
== END | disposition home or self-care (01) ==
LOC: RADMRIMAIN 16:06
PROVIDERS: ATTEND Family Medicine
DX: M50.122 Cervical disc disorder at C5-C6 level with radiculopathy (principal); M48.02 Spinal stenosis, cervical region; M99.71 Connective tissue and disc stenosis of intervertebral foramina of cervical region
CPT/HCPCS: 72156; A9585

== ENCOUNTER → 2023-03-05 | Outpatient (CLI) | payer OTHER ==
--- NOTE | 2023-03-11 21:14 | MM ---
Reason for Exam: Screening (asymptomatic). Last mammogram was performed 14 year(s) and 3 month(s) ago. Patient History: Menarche at age 12. First Full-Term at age 35. Late child-bearing (after 30). Patient has history of breast feeding. 1997, Lumpectomy on the Right side. Paternal aunt had breast cancer, age 50. Maternal aunt had breast cancer. Maternal aunt had breast cancer. Maternal aunt had breast cancer. Mother had breast cancer, age 49. Risk Values: Mary 5 year model risk: 3.2%. NCI Lifetime model risk: 15.6%. Prior Study Comparison: No prior studies available for comparison. Tissue Density: There are scattered fibroglandular densities. Findings: Analyzed By CAD. 3 areas of nodularity within the left breast appear isodense and circumscribed on 3-D images. As no priors are available for comparison purposes, further evaluation is recommended. Otherwise, no significant mass, suspicious microcalcification, or other discrete abnormality is seen. Overall Assessment: Incomplete: need additional imaging evaluation, BI-RAD 0 Management: Special View Mammogram of the left breast. Diagnostic Breast Ultrasound of the left breast. Additional views left breast to include 3-D CC rolled and 3-D lateral views. Targeted left breast ultrasound for any persisting abnormality. [facility] will attempt to contact patient to return for supplemental views and ultrasound if indicated. Electronically signed and approved by: Elvis Campos M.D. Radiologist
== END | disposition home or self-care (01) ==
LOC: RADMAMWWP 14:42
PROVIDERS: ATTEND Family Medicine
DX: Z12.31 Encounter for screening mammogram for malignant neoplasm of breast (principal); Z80.3 Family history of malignant neoplasm of breast
CPT/HCPCS: 77063; 77067

== ENCOUNTER → 2023-03-21 | Outpatient (CLI) | payer MEDICARE, OTHER ==
--- NOTE | 2023-03-21 14:10 | USB ---
Reason for Exam: Additional evaluation requested from abnormal screening. Patient History: Menarche at age 12. First Full-Term at age 35. Late child-bearing (after 30). Patient has history of breast feeding. 1997, Lumpectomy on the Right side. Paternal aunt had breast cancer, age 50. Maternal aunt had breast cancer. Maternal aunt had breast cancer. Maternal aunt had breast cancer. Mother had breast cancer, age 49. Risk Values: Mary 5 year model risk: 3.2%. NCI Lifetime model risk: 15.6%. Technique: Method: Whole Breast Handheld. Prior Study Comparison: 12/19/2008 Bilateral Diagnostic Mammogram, [facility]. 07/26/2009 Right Diagnostic Mammogram, [facility]. 03/05/2023 Bilateral MG 3D screening mammo w/cad, [facility]. Findings: The whole breast of the left breast, the axilla of the left breast and the retroareolar of the left breast were scanned. Technique utilized:US breast workup complete LT Image; Ultrasound imaging of: All 4 quadrants, the retroareolar region and axilla. Simple appearing cyst at 3:00 10 cm from nipple measuring 9 x 5 x 9 mm. No evidence for mass. Overall Assessment: Benign, BI-RAD 2 Management: Screening Mammogram of both breasts in 1 year. A clinical breast exam by your physician is recommended on an annual basis and results should be correlated with mammographic findings. This exam should not preclude additional follow-up of suspicious palpable abnormalities. Results were given to the patient verbally at the time of exam. Electronically signed and approved by: Omero Avilez DO
--- NOTE | 2023-03-21 14:11 | MM ---
Reason for Exam: Additional evaluation requested from abnormal screening. Last screening mammogram was performed less than 1 month ago. Patient History: Menarche at age 12. First Full-Term at age 35. Late child-bearing (after 30). Patient has history of breast feeding. 1997, Lumpectomy on the Right side. Paternal aunt had breast cancer, age 50. Maternal aunt had breast cancer. Maternal aunt had breast cancer. Maternal aunt had breast cancer. Mother had breast cancer, age 49. Risk Values: Mary 5 year model risk: 3.2%. NCI Lifetime model risk: 15.6%. Prior Study Comparison: 12/19/2008 Bilateral Diagnostic Mammogram, [facility]. 07/26/2009 Right Diagnostic Mammogram, [facility]. 03/05/2023 Bilateral MG 3D screening mammo w/cad, [facility]. Tissue Density: Left: There are scattered fibroglandular densities. Findings: Analyzed By CAD. Finding persists in the right breast on CC view lateral aspect. Approximately 10 cm from nipple measuring up to 9 mm. There is no additional suspicious group of microcalcifications or new suspicious mass. No new suspicious masses, calcifications or distortions. Overall Assessment: Incomplete: need additional imaging evaluation, BI-RAD 0 Management: Diagnostic Breast Ultrasound of the right breast. Results were given to the patient verbally at the time of exam. Patient should continue monthly self-breast exams. A clinical breast exam by your physician is recommended on an annual basis. This exam should not preclude additional follow-up of suspicious palpable abnormalities. Note on Mary scores and lifetime risk: 1. A Mary score greater than 3% is considered moderate risk. If this is the case, consider specialist referral to assess eligibility for a risk reducing agent. 2. If overall lifetime risk for the development of breast cancer is 20% or higher, the patient may qualify for future screening with alternating mammogram and breast MRI. Electronically signed and approved by: Omero Avilez DO
== END | disposition home or self-care (01) ==
LOC: RADMAMWWP 13:12
PROVIDERS: ATTEND Family Medicine
DX: N60.02 Solitary cyst of left breast (principal); R92.322 Mammographic fibroglandular density, left breast; Z80.3 Family history of malignant neoplasm of breast
CPT/HCPCS: 77065; 76641; G0279; 77061

== ENCOUNTER → 2023-06-04 | Outpatient (CLI) | payer MEDICARE ==
[2023-06-04 18:56] LABS: Basophils # (A) 0.11 X 10*3/uL (0.00-0.10); Basophils % (A) 1.1 %; Eosinophils # (A) 0.58 X 10*3/uL (0.04-0.35); Eosinophils % (A) 5.8 %; HCT 44.3 % (37.2-46.3); HGB 13.6 g/dL (12.0-15.0); Lymphocytes # (A) 2.65 X 10*3/uL (0.90-5.00); Lymphocytes % (A) 26.3 %; MCH 28.4 pg (27.0-32.0); MCHC 30.7 g/dL (32.0-37.0); MCV 92.5 FL (80.0-97.0); Mean Platelet Volume 10.4 FL (9.5-12.2); Monocytes % (A) 6.9 %; NRBC Per 100 WBC 0 X 10*3/uL (0.00-0.01); Neutrophils % (A) 59.5 %; Platelet Count 416 X 10*3/uL (140-440); RBC 4.79 X 10*6/uL (4.10-5.20); RDW 14.8 % (11.5-14.5); WBC 10.08 X 10*3/uL (4.50-10.00)
[2023-06-05 03:23] LABS: ALT 37 U/L (8-44); AST 21 U/L (13-35); Albumin 4.8 g/dL (3.8-4.9); Albumin/Globulin Ratio 1.85 Ratio (1.60-3.17); Alkaline Phosphatase 70 U/L (41-126); BUN/Creat Ratio 22.56 Ratio (12.00-20.00); Blood Urea Nitrogen 20.3 mg/dL (9.0-27.0); Calcium 9.8 mg/dL (8.7-10.3); Chloride 101 mmol/L (96-109); Globulin 2.6 g/dL (1.6-3.3); Glucose 138 mg/dL (70-110); Potassium 3.3 mmol/L (3.5-5.5); Sodium 144 mmol/L (135-145); Total Bilirubin 0.4 mg/dL (0.3-1.2); Total Protein 7.4 g/dL (6.2-8.2)
[2023-06-05 04:00] LABS: Hepatitis A Antibody IgM Nonreactive; Hepatitis B Core IgM Nonreactive; Hepatitis B Surface Antigen Nonreactive; Hepatitis C IgG Antibody Nonreactive
[2023-06-05 06:03] LABS: HIV 2 AB Non-Reactive (Non-Reactive); HIV AB P24 Non-Reactive (Non-Reactive); HIV P24 AG Non-Reactive (Non-Reactive)
== END | disposition home or self-care (01) ==
LOC: LABWHC1 16:15
PROVIDERS: ATTEND Family Medicine
DX: S49.90XA Unspecified injury of shoulder and upper arm, unspecified arm, initial encounter (principal); E11.9 Type 2 diabetes mellitus without complications; X58.XXXA Exposure to other specified factors, initial encounter
CPT/HCPCS: 36415; 80053; 80074; 83036; 85025; 87390

== ENCOUNTER → 2023-10-24 | Outpatient (CLI) | payer MEDICARE ==
--- NOTE | 2023-10-24 14:34 | XR ---
EXAMINATION TYPE: XR chest 2V DATE OF EXAM: 10/24/2023 2:30 PM CLINICAL INDICATION:Female, 62 years old with history of R07.9 CHEST PAIN, UNSPECIFIED; COMPARISON: Chest radiographs from 10/24/2023 TECHNIQUE: XR chest 2V Frontal view of the chest. FINDINGS: Lungs/Pleura: There is no evidence of pleural effusion, focal consolidation, or pneumothorax. Pulmonary vascularity: Unremarkable. Heart/mediastinum: Cardiomediastinal silhouette is unremarkable. Musculoskeletal: No acute osseous pathology. IMPRESSION: No acute cardiopulmonary disease/process.
== END | disposition home or self-care (01) ==
LOC: RADXRMAIN 14:12
PROVIDERS: ATTEND Family Medicine
DX: R07.9 Chest pain, unspecified (principal)
CPT/HCPCS: 71046

== ENCOUNTER → 2024-03-31 | Outpatient (CLI) | payer MEDICARE ==
--- NOTE | 2024-03-31 08:03 | MM ---
Reason for Exam: Additional evaluation requested from prior study. Last mammogram was performed 1 year(s) and 1 month(s) ago. Patient History: Menarche at age 12. First Full-Term at age 35. Late child-bearing (after 32). Patient has history of breast feeding. 1998, Lumpectomy on the Right side. Paternal aunt had breast cancer, age 50. Maternal aunt had breast cancer. Maternal aunt had breast cancer. Maternal aunt had breast cancer. Mother had breast cancer, age 49. Risk Values: Mary 5 year model risk: 3.3%. NCI Lifetime model risk: 15.1%. Tissue Density: There are scattered areas of fibroglandular density. Findings: Analyzed By CAD. Stable-appearing 10 mm cyst seen on prior ultrasound in the left breast at 3:00. No new suspicious masses, calcifications or distortions. Stable-appearing 10 mm cyst seen on prior ultrasound in the left breast at 3:00. No new suspicious masses, calcifications or distortions. No finding to correlate with patient's pain. Overall Assessment: Benign, BI-RAD 2 Management: Screening Mammogram of both breasts in 1 year. Results were given to the patient verbally at the time of exam. Patient should continue monthly self-breast exams. A clinical breast exam by your physician is recommended on an annual basis. This exam should not preclude additional follow-up of suspicious palpable abnormalities. Note on Mary scores and lifetime risk: 1. A Mary score greater than 3% is considered moderate risk. If this is the case, consider specialist referral to assess eligibility for a risk reducing agent. 2. If overall lifetime risk for the development of breast cancer is 20% or higher, the patient may qualify for future screening with alternating mammogram and breast MRI. [facility], , 03/31/2024 7:59 AM. Electronically signed and approved by: Omero Avilez DO
== END | disposition home or self-care (01) ==
LOC: RADMAMWWP 07:35
PROVIDERS: ATTEND Family Medicine
DX: R92.323 Mammographic fibroglandular density, bilateral breasts (principal); N64.4 Mastodynia; Z80.3 Family history of malignant neoplasm of breast
CPT/HCPCS: 77066; G0279; 77062

== ENCOUNTER → 2024-06-26 | Outpatient (CLI) | payer MEDICARE ==
[2024-06-27 06:26] LABS: Basophils # (A) 0.05 X 10*3/uL (0.00-0.10); Basophils % (A) 0.6 %; Eosinophils # (A) 0.31 X 10*3/uL (0.04-0.35); Eosinophils % (A) 3.5 %; HCT 45.4 % (37.2-46.3); Lymphocytes # (A) 2.16 X 10*3/uL (0.90-5.00); Lymphocytes % (A) 24.1 %; MCH 26.3 pg (27.0-32.0); MCHC 30.8 g/dL (32.0-37.0); MCV 85.3 FL (80.0-97.0); Mean Platelet Volume 9.9 FL (9.5-12.2); Monocytes # (A) 0.71 X 10*3/uL (0.20-1.00); Monocytes % (A) 7.9 %; NRBC Per 100 WBC 0 X 10*3/uL (0.00-0.01); Neutrophils # (A) 5.67 X 10*3/uL (1.80-7.70); Neutrophils % (A) 63.3 %; Platelet Count 500 X 10*3/uL (140-440); RBC 5.32 X 10*6/uL (4.10-5.20); RDW 14.2 % (11.5-14.5); WBC 8.95 X 10*3/uL (4.50-10.00)
[2024-06-27 11:41] LABS: Chol/HDL Ratio 5.22 Ratio; Iron 58 UG/DL (50-170); LDL Cholesterol,Calculated 136.9 mg/dL (0.0-131.0); Magnesium 2.1 mg/dL (1.5-2.4); T4, Free (Free Thyroxine) 1.57 ng/dL (0.80-1.80)
[2024-06-27 11:46] LABS: ALT 27 U/L (8-44); AST 22 U/L (13-35); Albumin 4.5 g/dL (3.8-4.9); Albumin/Globulin Ratio 1.45 Ratio (1.60-3.17); Alkaline Phosphatase 95 U/L (41-126); Carbon Dioxide 32.5 mmol/L (21.6-31.8); Chloride 110 mmol/L (96-109); Globulin 3.1 g/dL (1.6-3.3); Glucose 128 mg/dL (70-110); Potassium 3.1 mmol/L (3.5-5.5); Total Bilirubin 0.4 mg/dL (0.3-1.2); Total Protein 7.6 g/dL (6.2-8.2)
[2024-06-27 12:11] LABS: Microalbumin Creatinine Ratio <7 mg/g Cr (0-30)
[2024-06-28 10:36] LABS: Anion Gap 0.5 mmol/L (4.00-12.00); Sodium 143 mmol/L (135-145)
== END | disposition home or self-care (01) ==
LOC: LABWHC1 10:34
PROVIDERS: ATTEND Family Medicine
DX: E11.22 Type 2 diabetes mellitus with diabetic chronic kidney disease (principal); Z79.899 Other long term (current) drug therapy
CPT/HCPCS: 36415; 80053; 80061; 82043; 82570; 83036; 83540; 83735; 84439; 84443; 84481; 85025